=== PATIENT | female | born 1940 | race Caucasian/White ===

== ENCOUNTER 2017-09-18 19:49 | Inpatient (IN) | payer OTHER ==
[~2017-09-18] VITALS: Ht 167.6 cm; Wt 96.4 kg
[~2017-09-18 19:49] MED LIST: ATORVASTATIN CA10 M1 PO; BACTRIM DS TAB1 EACH PO; FUROSEMIDE20 M1 PO; HYDROCHLOROTHIA25 M1 PO; KEFLEX500 M1 PO; MECLIZINE HCL25 MG PO; RW
[2017-09-18 20:26] LABS: ABSOLUTE BASOPHIL COUNT 0 /CUMM (0.0-0.2); ABSOLUTE EOSINOPHIL COUNT 0.2 /CUMM (0.0-0.7); ABSOLUTE LYMPH COUNT 0.3 /CUMM (1.2-3.4); ABSOLUTE MONOCYTE COUNT 0.4 /CUMM (0.10-0.60); BASOPHIL % 0.1 % (0.0-2.0); EOSINOPHIL % 3.8 % (0-5); GRANULOCYTE % 85.4 % (42.2-75.2); HEMATOCRIT 34.8 % (37-47); MEAN CORPUSCULAR HGB 28.5 PG (27.0-31.0); MEAN CORPUSCULAR HGB CONC 33.4 G/DL (33.0-37.0); MEAN CORPUSCULAR VOLUME 85.5 FL (81.0-99.0); MEAN PLATELET VOLUME 9.1 FL (7.4-10.4); PLATELET COUNT 192 /CUMM (130-400); RBC DISTRIBUTION WIDTH 14.5 % (11.5-14.5); RED BLOOD CELL CT 4.07 /CUMM (4.20-5.40); WHITE BLOOD CELL COUNT 5.8 /CUMM (4.8-10.8)
--- NOTE | 2017-09-18 22:20 | ED SKIN/ALLERGY COMPLAINT ---
History of Present Illness General Chief Complaint: Fever Stated Complaint: FEVER/CHILLS Source: patient, family, old records Exam Limitations: no limitations Vital Signs & Intake/Output Vital Signs & Intake/Output Vital Signs Date Time Temp Pulse Resp B/P B/P Pulse O2 O2 Flow FiO2 Mean Ox Delivery Rate 09/19 000 98.5 85 20 120/57 98 Room Air 09/18 2002 100.5 09/18 1956 100.5 09/19 1955 120 16 145/98 96 Room Air ED Intake and Output 09/19 0000 09/18 1200 Intake Total Output Total Balance Patient 200 lb Weight Weight Reported by Patient Measurement Method Allergies Coded Allergies: codeine (Intermediate, GI UPSET 09/08/17) Reconcile Medications Cephalexin (Keflex) 500 MG CAPSULE 1 CAP PO 4 TIMES/DAY INFECTION Hydrochlorothiazide 25 MG TABLET 1 TAB PO DAILY HTN (Reported) Meclizine HCl 25 MG TABLET 1 TAB PO TIDPRN DIZZY (Reported) Sulfamethoxazole/Trimethoprim (Bactrim Ds Tablet) 800 MG-160 MG TABLET 1 TAB PO BID INFECION Triage Note: PT RECENTLY HERE FOR RIGHT LOWER EXTREMITY CELLULITIS, SENT HOME ON PO ABTS. REPORTS FEVERS TODAY UP TO 101. REPORTS MISSED A COUPLE DOSES OF PO ABTS DUE TO STOMACH UPSET. REDNESS, SWELLING PERSISTS TO RIGHT LOWER LEG Triage Nurses Notes Reviewed? yes Onset: Last week Duration: day(s):, constant, continues in ED Timing: recent history Severity: moderate Location: extremities Associated Symptoms: change in skin texture, rash, swelling/mass/lumps LMP (ages 10-50): post menopausal : No Patient currently breastfeeds: No HPI: 10 days prior to admission patient was evaluated for fall and found to have cellulitis of the right lower extremity prescribed Keflex and Bactrim. She is been inconsistent with antibiotics secondary to GI upset. 1 day prior to admission she reports fever to 101 with continued right lower extremity rash. She denies nausea vomiting diarrhea abdominal pain chest pain cough shortness of breath headache dysuria bleeding. Past History Travel History Traveled to [place] past 21 day No Medical History Any Pertinent Medical History? see below for history Neurological: vertigo Cardiovascular: hypertension Surgical History Surgical History: non-contributory Psychosocial History What is your primary language Faroese Tobacco Use: Never used Family History Hx Contributory? No Review of Systems Review of Systems Constitutional: Reports: see HPI, chills, fever. EENTM: Reports: no symptoms. Respiratory: Reports: no symptoms. Cardiovascular: Reports: no symptoms. GI: Reports: no symptoms. Genitourinary: Reports: no symptoms. Musculoskeletal: Reports: no symptoms. Skin: Reports: see HPI, rash. Neurological/Psychological: Reports: no symptoms. Hematologic/Endocrine: Reports: no symptoms. Immunologic/Allergic: Reports: no symptoms. All Other Systems: Reviewed and Negative Physical Exam Physical Exam General Appearance: well developed/nourished, alert, awake, anxious, comfortable , obese Head: atraumatic, normal appearance Eyes: Bilateral: normal appearance, PERRL, EOMI. Ears, Nose, Throat: normal pharynx, normal ENT inspection, hearing grossly normal Neck: normal inspection, supple, full range of motion Respiratory: normal breath sounds, chest non-tender, no respiratory distress, quiet respiration, lungs clear Cardiovascular: regular rate/rhythm, normal peripheral pulses, norml femoral pulses equa Peripheral Pulses: 4+ carotid (R), 4+ carotid (L) Gastrointestinal: normal bowel sounds, soft, non-tender, no organomegaly Back: normal inspection, normal range of motion, no vertebral tenderness Extremities: normal inspection, normal capillary refill, normal range of motion, no edema Neurologic/Psych: no motor/sensory deficits, awake, alert, oriented x 3, normal gait, normal mood/affect, make up girl II-XII nml as tested Reflexes: 2+: bicep (R), bicep (L). Skin: intact, warm/dry, rash Skin Problem Location: lower extremities (right pretibial area), bilateral stasis dermatitis Skin Problem Character: erythema, rash, tenderness, thickening, warm Lymphatic: no anterior cervical elida Progress Differential Diagnosis: abscess/cellulitis, allergic reaction, failure of outpatient antibiotics Plan of Care: Orders Procedure Date/time Status Regular Diet 09/19 B Active Pathway - chart 09/19 57 Active House Staff 09/19 57 Active Patient Data 09/19 57 Active Code Status 09/19 57 Active Add-on Test (ER Only) 09/20 51 Active VTE Mechanical Prophylaxis 09/19 UNK Active Patient Data 09/18 2342 Active OXYGEN SETUP (GEN) 09/18 2306 Active Saline Lock 09/18 2306 Active Admit to inpatient 09/18 2306 Active Vital Signs 09/18 2306 Active Activity/Ambulation 09/18 2306 Active Code Status 09/18 2306 Complete Intake & Output 09/18 2156 Active URINALYSIS 09/19 2135 Complete BLOOD CULTURE 09/18 1958 Active LACTIC ACID 09/18 1958 Complete COMPREHENSIVE METABOLIC PANEL 09/18 1958 Complete CBC WITHOUT DIFFERENTIAL 09/18 1958 Complete Current Medications Sig/Vin Start time Last Medication Dose Stop Time Status Admin Acetaminophen 325 MG Q6 PRN 09/19 99 UNVr (Tylenol) Polyethylene Glycol 17 GM ONCE ONE 09/19 99 CAN (Miralax) 09/19 100 Heparin Sodium 5,000 UNIT Q8 09/19 57 UNVr (Porcine) Docusate Sodium 100 MG DAILY NEEDED PRN 09/19 44 AC (Colace) Polyethylene Glycol 17 GM DAILY 09/19 44 AC (Miralax) Laboratory Tests 09/18/172258: Lactic Acid Cancelled 09/18/172124: Urine Color YEL, Urine Clarity CLEAR, Urine pH 6.0, Ur Specific [place] 1.025, Urine Protein NEG, Urine Ketones TRACE H, Urine Nitrite NEG, Urine Bilirubin NEG, Urine Urobilinogen 0.2, Ur Leukocyte Esterase NEG, Ur Microscopic EXAM NOT REQUIRED, Urine Hemoglobin NEG, Urine Glucose NEG 09/18/172008: Anion Gap 11, Estimated GFR 44 L, BUN/Creatinine Ratio 23.3, Glucose 123 H, Lactic Acid 1.0, Calcium 10.1, Total Bilirubin 0.5, AST 25, ALT 17, Alkaline Phosphatase 104, Total Protein 7.5, Albumin 4.1, Globulin 3.4, Albumin/Globulin Ratio 1.2, CBC w Diff MAN DIFF ORDERED, RBC 4.07 L, MCV 85.5, MCH 28.5, MCHC 33.4, RDW 14.5, MPV 9.1, Gran % 85.4 H, Lymphocytes % 4.7 L, Monocytes % 6.0, Eosinophils % 3.8, Basophils % 0.1, Absolute Granulocytes 5.0, Segmented Neutrophils 69, Band Neutrophils 11 H, Absolute Lymphocytes 0.3 L, Lymphocytes 9 L, Monocytes 6, Absolute Monocytes 0.4, Eosinophils 5, Absolute Eosinophils 0.2, Absolute Basophils 0, Platelet Estimate ADEQUATE, Normocytic RBCs VERIFIED Microbiology 09/18 2144 BLOOD: Blood Culture - RECD 09/18 2008 BLOOD: Blood Culture - RECD Diagnostic Imaging: Viewed by Me: Radiology Read. Discussed w/RAD: Radiology Read. CXR Impression: no acute abnormality, no infiltrates Departure Departure Time of Disposition: 2300 Disposition: STILL A PATIENT Condition: Stable Clinical Impression Primary Impression: Cellulitis Referrals: Aster IVAN,Milton Borjas (PCP/Family) Departure Forms: Customer Survey General Discharge Information Admission Note Spoke With: Kamla Ramos MD Documentation of Exam: Documentation of any treatments & extenuating circumstances including Concerns Regarding Discharge (functional status, medication knowledge or non-compliance, living conditions, etc.) that warrant an admission rather than observation: IV antibiotics follow cultures medication adjustment serial lab exam continuing care discharge planning
--- NOTE | 2017-09-18 22:27 | RADIOLOGY REPORT ---
EXAMINATION: XR CHEST CLINICAL INFORMATION: Femur COMPARISON: None TECHNIQUE: 2 views of the chest were obtained. FINDINGS: The lungs are well expanded. There is no focal consolidation, edema, or effusion. No pneumothorax. The cardiomediastinal silhouette is normal in size with a tortuous aorta. No acute osseous abnormality. IMPRESSION: No acute pulmonary findings.
--- NOTE | 2017-09-18 23:52 | History & Physical ---
Teri Paez Vincent 09/18/17 5203: General Information and HPI MD Statement: I have seen and personally examined SVETLANA FRANCO and documented this H&P. The patient is a 77 year old F who presented with a patient stated chief complaint of [Fever]. Source of Information: patient, old records Exam Limitations: no limitations History of Present Illness: Ms. 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 Patient was last discharged with PO ABX of keflex and bactrim with negative blood cultures, however she was being consistent with antibiotics secondary to GI upset. One day prior to admission patient reported fever of 101, with continued right lower extremity redness/swelling. Patient also stated that she has a cat at home that she got scratched on the leg before and after 09/08 ER visit. She cannot really remember the details of the scratches, or whether there has been skin breakdown. However patient also stated that she had a remote history of being scratched by the same cat, and was sent for urgent care for treatment of cellulitis some years ago. She denies any significant hospitalization in the past, and was only taking hydrochlorothiazide for hypertension, and the meclizine as needed for vertigo. She was supposed to take Lipitor for the hyperlipidemia, but she did not take it on a regular basis. She was also been prescribed before was furosemide for hypertension, but she was not taking it now as well. During our clinical interaction, patient denied fever/night sweat/weight change/ cough/SOB/Chest Pain/Palpitation/exercise intolerance/Abdominal pain/bowel movement/urinary abnormality, or other skin/musculoskeletal/neurological disorders/mood change/insomnia/dietary/appetite change. -Smoking: Denies -Alcohol: Denies -Rec Drugs: Denies Allergies/Medications Allergies: Coded Allergies: codeine (Intermediate, GI UPSET 09/08/17) Home Med list Cephalexin (Keflex) 500 MG CAPSULE 1 CAP PO 4 TIMES/DAY INFECTION Hydrochlorothiazide 25 MG TABLET 1 TAB PO DAILY HTN (Reported) Meclizine HCl 25 MG TABLET 1 TAB PO TIDPRN DIZZY (Reported) Sulfamethoxazole/Trimethoprim (Bactrim Ds Tablet) 800 MG-160 MG TABLET 1 TAB PO BID INFECION Past History Travel History Traveled to [place] past 21 day No Medical History Neurological: vertigo Cardiovascular: hypertension Surgical History Surgical History: non-contributory Review of Systems Review of Systems Constitutional: Reports: see HPI. Exam & Diagnostic Data Last 24 Hrs of Vital Signs/I&O Vital Signs Date Time Temp Pulse Resp B/P B/P Pulse O2 O2 Flow FiO2 Mean Ox Delivery Rate 09/18 2002 100.5 09/18 1956 100.5 09/19 1955 120 16 145/98 96 Room Air Physical Exam General Appearance Alert, Oriented X3, Cooperative, No Acute Distress Skin No Rashes, No Breakdown, No Significant Lesion Skin Temp/Moisture Exam: Warm/Dry Sepsis Skin Exam (color): Normal for Ethnicity HEENT Atraumatic Neck Supple, No JVD Lymphatic Axillary nl, Cervical nl, inguinal nl Cardiovascular Regular Rate, Normal S1, Normal S2 Lungs Clear to Auscultation, Normal Air Movement Abdomen Normal Bowel Sounds, Soft, No Tenderness Neurological Normal Speech, Strength at 5/5 X4 Ext, Sensation Intact Extremities Normal Pulses, Chronic venous stasis skin changes BLE RLE below knee with redness/swelling, but no significant elevation of skin temp Last 24 Hrs of Labs/Te: Laboratory Tests 09/18/172258: Lactic Acid Cancelled 09/18/172124: Urine Color YEL, Urine Clarity CLEAR, Urine pH 6.0, Ur Specific [place] 1.025, Urine Protein NEG, Urine Ketones TRACE H, Urine Nitrite NEG, Urine Bilirubin NEG, Urine Urobilinogen 0.2, Ur Leukocyte Esterase NEG, Ur Microscopic EXAM NOT REQUIRED, Urine Hemoglobin NEG, Urine Glucose NEG 09/18/172008: Anion Gap 11, Estimated GFR 44 L, BUN/Creatinine Ratio 23.3, Glucose 123 H, Lactic Acid 1.0, Calcium 10.1, Total Bilirubin 0.5, AST 25, ALT 17, Alkaline Phosphatase 104, Total Protein 7.5, Albumin 4.1, Globulin 3.4, Albumin/Globulin Ratio 1.2, CBC w Diff MAN DIFF ORDERED, RBC 4.07 L, MCV 85.5, MCH 28.5, MCHC 33.4, RDW 14.5, MPV 9.1, Gran % 85.4 H, Lymphocytes % 4.7 L, Monocytes % 6.0, Eosinophils % 3.8, Basophils % 0.1, Absolute Granulocytes 5.0, Segmented Neutrophils 69, Band Neutrophils 11 H, Absolute Lymphocytes 0.3 L, Lymphocytes 9 L, Monocytes 6, Absolute Monocytes 0.4, Eosinophils 5, Absolute Eosinophils 0.2, Absolute Basophils 0, Platelet Estimate ADEQUATE, Normocytic RBCs VERIFIED Microbiology 09/18 2144 BLOOD: Blood Culture - RECD 09/18 2008 BLOOD: Blood Culture - RECD Assessment/Plan Assessment: Problem list & Assessment: Patient presented with similar complaint from previous admission of cellulitis of the right lower extremity, with new onset fever after inconsistent use of oral antibiotics including Keflex/Bactrim DS. Her previous blood culture was negative. On physical examination, her bilateral lower extremities appear to be more of a chronic skin changes from venous stasis, was auscultable pulses with Doppler, and the patient endorsed some achiness while walking. There was no significant elevation of skin temperature of the cellulitis site compared to the left lower extremity. Cat-Scratch related fever could not be rule out, despite patient's been negative on physical examination of lymph nodes, or had a pustular lesion/significant scratch florence. Elevated creatinine most likely due to dehydration/fever. #Cellulitis of the right lower extremity #Questionable cat-scratch disease w/ no lymphadenopathy/pustular lesion/scratch florence #Chronic venous stasis with skin change BLE #ALECIA 2/2 dehydration #PMH of hypertension, hyperlipidemia, vertigo Hospital Course: - Admit to general medicine floor course, if worsening, may consider ID consult DVT prophylaxis Heparin + ALPS Regular Diet Full Code As Ranked By This Provider Problem List: 1. Cellulitis Core Measures/Misc (02/02) Acute Coronary Syndrome ACS Diagnosis: No Congestive Heart Failure Congestive Heart Failure Diagnosis No Cerebrovascular Accident CVA/TIA Diagnosis: No VTE (View Protocol) VTE Risk Factors Age>40 No Mechanical VTE Prophylaxis d/t N/A MechProphylax Ordered No VTE Pharm Prophylaxis d/t NA PharmProphylax ordered Sepsis (View protocol) Sepsis Present: No Gianni Ortiz 09/19/17 0159: Resident Review Statement Resident Statement: examined this patient, discussed with integrated marketing intern Other Findings: Patient is a 79-year-old female with past medical history of hypertension, vertigo, recent visit to [facility] for RLE cellulitis(treated with IV cefazolin, by mouth Bactrim) presents for the evaluation of worsening redness and edema in the right leg. Patient was seen in the [place] ER on 09/08/2017 one week status post a mechanical fall with trauma to her right lower extremity. She was found to have right lower extremity cellulitis and was treated with IV cefazolin in the ED. A right lower extremity ultrasound done at that time was negative for DVT. She was discharged on by mouth Bactrim. Patient reports that she has been taking Bactrim intermittently for the last 2 weeks missing a few doses due to extreme nausea. She feels the edema and redness in her extremity had worsened since her last ER visit. She denies any chest pain, palpitation, shortness of breath, abdominal pain, urinary or bowel symptoms. She reports feeling hot at home and mounting a fever of 99.8. Denies any further trauma to her leg but admits to having multiple cat scratches to her extremity. Denies any open wounds, purulent discharge from the leg. She did have a skin break on the anterior part of her right ankle a few days back which healed by itself. She does have stasis dermatitis changes on her legs and reports claudication when walking long distances. Patient appears to be non complaint with her home medications Of note, patient has been treated in urgent care previously for cellulitis secondary to cat stratch. Her cat is a feral cat not really domestic, but raised by her friends and relatives. She does not recall any bite wounds nor significant skin breaks secondary to cat scratch. At admission she had a temp of 100.5, pulse 120, respirations 16, blood pressure 145/98, saturating 96% on room air. Labs showed white count 5.8 with 11 bands., H&H 11.6/34.8, sodium 135, BUN 28, creatinine 1.2(0.7 baseline), glucose 123, C-reactive protein 2, UA unimpressive Chest x-ray showed no acute findings Physical exam: General: Awake, alert, oriented, in no distress HEENT: PERRLA, EOMI, no palpable lymphadenopathy Chest: Bilateral breath sounds clear CVS: S1 and S2 heard no murmurs Abdomen: Bowel sounds positive, no tenderness Extremities: RLE: Swollen, erythematous,hot, with chronic venous stasis changes. No scratch florence noted. L LE: Chronic venous stasis changes. Pulses palpable bilaterally(Doppler used) Assessment Sepsis secondary to cellulitis Right lower extremity cellulitis(failure of IV cefazolin and PO Bactrim) Cat Scratch disease?? No lymphadenopathy or cutaneous lesions Chronic venous stasis changes bilateral lower extremities ALECIA, prerenal likely secondary to dehydration and Bactrim Chronic venous statis changes Peripheral vascular disease? Reports claudication Hypertension/hyperlipidemia Medication non compliance Plan * Admit patient to [facility] * Vitals per protocol * Gentle hydration with IV normal saline at 75 cc an hour * Patient received 1 dose of IV vancomycin in the day(however non purulent). We will continue IV Unasyn for cellulitis.(Failure of IV cefazolin/po Bactrim) * We'll give 1 dose of IV azithromycin for cat scratch disease. It seems unlikely given no palpable lymphadenopathy or cutaneous lesions * Pancultures * Elevate RLE * Cellulitis not getting better, consider ID consult * Recheck Doppler of right lower extremity. Doppler 09/09 was negative * Avoid nephrotoxins, will hydrate and check B E P in a.m. * We will hold hydrochlorothiazide given kidney injury. Can try amlodipine a blood pressure high. 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 Patient sustained a mechanical fall 3 weeks ago wherein she slipped on water on the tiled bathroom floor and suffered bruises. A week later on September 08, she came to the ER for right leg swelling/ redness. She was diagnosed with cellulitis and given IV cefazolin. DVT was ruled out with a doppler. Due to her unsteady gait, PT evaluation was sought and acute rehabilitation was suggested. However, patient refused and left against medical advice. She was prescribed keflex and bactrim for cellulitis, which she reports being non-compliant with in the past few days due to nausea and vomiting. She had a fever of 101 at home, and the right leg erythema persisted, hence she came to the ER. She also reports cat scratch to the right leg but no evidence of cutaneous lesions. At admission she had a temp of 100.5, pulse 120, respirations 16, blood pressure 145/98, saturating 96% on room air. Vitals Tmax 100.5, HR 80-100's, BP 120/57, sats 98% RA. Exam: Bilateral leg/ ankle chronic venous stasis dermatitis+, Right leg ecchymotic patch noted just below the right knee, diffuse blanching erythema and swelling noted, warmth+, no open wounds or scratch florence. Bilateral dopplerable pulse++. Varicose veins+, skin changes suggestive of peripheral vascular disease+. No lymphadenopathy Labs: WBC 5.8, bands 11, Na 135, BUN 28, creat 1.2 (baseline 0.7), glucose 123, lactic acid 1.0, CRP elevated at 2.0. UA negative. CXR no acute findings. Assessment and plan: 1. Sepsis (fever, bandemia) due to right leg cellulitis 2. Cannot rule out cat-scratch disease as no e/o cutaneous lesions or lymphedenopathy 3. Failed outpatient therapy 4. Noncompliance with medication regimen 5. Chronic venous stasis 6. ALECIA likely 2/2 poor PO intake and bactrim use 7. Essential hypertension - Admit to general medicine - Elevate right leg - Panculture - Patient received Vancomycin in the ER no e/o pustular lesions or purulence - Continue IV Unasyn, one dose of azithro given for possible cat scratch - Pulses were dopplerable so holding off on arterial doppler - Recent venous doppler was negative for DVT - Hold HCTZ and benicar due to ALECIA, gentle hydration - PT eval for unsteady gait, case management consult for STR as patient refused during last ER visit - Patient is not on any meds for HLD, check lipid panel, TSH, free T4, HbA1c - Supportive care for nausea, vomiting - patient was tolerating her diet during our evaluation DVT ppx Hep SC. Full code.
[2017-09-19 01:29] VITALS: BP 122/64
--- NOTE | 2017-09-19 02:51 | Admission Certification ---
Admission Certification Certification Statement - As attending physician, I certify that at the time of - admission, based on clinical presentation, severity of - symptoms, need for further diagnostic testing and - therapeutic interventions, and risk of adverse outcomes - without in-hospital treatment, in my clinical assessment, - this patient requires an acute hospital stay for a minimum - of two nights or longer. I have also considered psychsocial - factors such as support system, advanced age, financial - issues, cognitive issues, and failed out-patient treatments, - past re-admission history, safety of patient, and lack of - compliance as applicable. Specific rationale supporting this admission is: Sepsis, Right lower extremity cellulitis, failed outpatient antibiotic therapy
[2017-09-19 06:54] VITALS: BP 124/72
--- NOTE | 2017-09-19 07:19 | PN- Housestaff ---
Michael Bush MD,[facility] 09/19/17 0719: Subjective Follow-up For: Cellulitis AK I Subjective: Patient visited today, was eating at the bedside bed comfortably in no acute distress, was alert and oriented. MAXIMUM TEMPERATURE 100.5 last night, no shortness of breathing, no chest pain, no other events. Patient receiving IV Unasyn Review of Systems Constitutional: Reports: see HPI. Objective Last 24 Hrs of Vital Signs/I&O Vital Signs Date Time Temp Pulse Resp B/P B/P Pulse O2 O2 Flow FiO2 Mean Ox Delivery Rate 09/19 1507 98.1 85 20 110/58 96 Room Air 09/19 0929 98.2 09/19 0654 97.7 78 20 124/72 96 09/19 0129 97.6 87 20 122/64 96 / 0009 98.5 85 20 120/57 98 Room Air 09/18 2003 100.5 09/18 1957 100.5 09/18 1956 120 16 145/98 96 Room Air Intake & Output 09/19 1600 09/19 0800 09/19 0000 Intake Total 1225 620 Output Total 500 350 Balance 725 270 Intake, IV 625 500 Intake, Oral 600 120 Number 1 Bowel Movements Output, Urine 500 350 Patient 213 lb 200 lb Weight Weight Bed scale Reported by Patient Measurement Method Physical Exam General Appearance: Alert, Oriented X3, Cooperative, No Acute Distress Skin: No Rashes Skin Temp/Moisture Exam: Warm/Dry Sepsis Skin Exam (color): Normal for Ethnicity HEENT: Atraumatic, EOMI Cardiovascular: Normal S1, Normal S2 Lungs: Normal Air Movement Extremities: Right leg swelling, erythema, tenderness Borders of erythema marked Current Medications: Current Medications Sig/Vin Start time Last Medication Dose Route Stop Time Status Admin Acetaminophen 650 MG ONCE ONE 09/19 1100 DC 09/19 PO 09/19 1101 1116 Acetaminophen 325 MG Q6 PRN 09/19 0100 AC 09/19 PO 0932 Ampicillin Sodium/ 1,500 MG Q6 09/19 0600 09/19 Sulbactam Sodium IV 1158 Sodium Chloride 100 ML Azithromycin 500 MG ONCE ONE 09/19 0300 DC 09/19 Sodium Chloride 250 ML IV 09/19 0359 0244 Docusate Sodium 100 MG DAILY NEEDED PRN 09/19 0045 09/19 PO 0126 Heparin Sodium 5,000 UNIT Q8 09/19 0058 AC 09/19 (Porcine) SC 1351 Ibuprofen 400 MG ONCE ONE 09/18 2014 DC 09/18 PO 09/18 Losartan Potassium 50 MG DAILY 09/19 1512 AC PO Polyethylene Glycol 17 GM ONCE ONE 09/19 0100 CAN PO 09/19 0101 Polyethylene Glycol 17 GM DAILY 09/19 0045 AC 09/19 PO 0932 Sodium Chloride 1,000 ML Q13H 09/19 0200 DC 09/19 IV 09/19 1459 0220 Vancomycin HCl 0 .STK-MED ONE 09/18 2352 DC .ROUTE Vancomycin HCl 1,000 MG ONCE ONE 09/18 2315 DC 09/18 Sodium Chloride 250 ML IV 09/19 0014 2350 Last 24 Hrs of Lab/Te Results Last 24 Hrs of Labs/Mics: Laboratory Tests 09/19/17 0630: Anion Gap 10, Estimated GFR 54 L, BUN/Creatinine Ratio 28.0 H, Hemoglobin A1c 5.6, TSH 5.490 H, Free T4 1.07, CBC w Diff NO MAN DIFF REQ, RBC 3.76 L, MCV 85.6, MCH 28.5, MCHC 33.4, RDW 14.6 H, MPV 9.4, Gran % 72.7, Lymphocytes % 11.2 L, Monocytes % 8.8, Eosinophils % 7.2 H, Basophils % 0.1, Absolute Granulocytes 2.3, Absolute Lymphocytes 0.4 L, Absolute Monocytes 0.3, Absolute Eosinophils 0.2, Absolute Basophils 0, ESR Westergren 35 H 09/18/17 2259: Lactic Acid Cancelled 09/18/175: Urine Color YEL, Urine Clarity CLEAR, Urine pH 6.0, Ur Specific Catlin 1.025, Urine Protein NEG, Urine Ketones TRACE H, Urine Nitrite NEG, Urine Bilirubin NEG, Urine Urobilinogen 0.2, Ur Leukocyte Esterase NEG, Ur Microscopic EXAM NOT REQUIRED, Urine Hemoglobin NEG, Urine Glucose NEG 09/18/172008: Anion Gap 11, Estimated GFR 44 L, BUN/Creatinine Ratio 23.3, Glucose 123 H, Lactic Acid 1.0, Calcium 10.1, Total Bilirubin 0.5, AST 25, ALT 17, Alkaline Phosphatase 104, C-Reactive Prot, Quant 2.0 H, Total Protein 7.5, Albumin 4.1, Globulin 3.4, Albumin/Globulin Ratio 1.2, CBC w Diff MAN DIFF ORDERED, RBC 4.07 L, MCV 85.5, MCH 28.5, MCHC 33.4, RDW 14.5, MPV 9.1, Gran % 85.4 H, Lymphocytes % 4.7 L, Monocytes % 6.0, Eosinophils % 3.8, Basophils % 0.1, Absolute Granulocytes 5.0, Segmented Neutrophils 69, Band Neutrophils 11 H, Absolute Lymphocytes 0.3 L, Lymphocytes 9 L, Monocytes 6, Absolute Monocytes 0.4, Eosinophils 5, Absolute Eosinophils 0.2, Absolute Basophils 0, Platelet Estimate ADEQUATE, Normocytic RBCs VERIFIED Microbiology 09/18 2144 BLOOD: Blood Culture - RES 09/18 2008 BLOOD: Blood Culture - RES Assessment/Plan Assessment: 77 y F presented with persistant swelling and erythema of right leg Took keflex, bactrim for 7 days and stopped PMH: HTN, Vertigo, recent cellulitis at the time of intervention, on physical examination, her bilateral lower extremities appeared to be more of a chronic skin changes from venous stasis, was auscultable pulses with Doppler, and the patient endorsed some achiness while walking. There was no significant elevation of skin temperature of the cellulitis site compared to the left lower extremity. 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 Cellulitis Pain Ratin Pain Location: Left leg Pain Goal: Pain 4 or less Pain Plan: Continue current plan responds well to tynelol Tomorrow's Labs & Rationales: No lab Ethan Valle MD 09/19/17 1322: Attending MD Review Statement Attending Statement Attending MD Statement: examined this patient, discuss w/resident/PA/CUT OFF MACHINE OPERATOR, agreed w/resident/PA/CUT OFF MACHINE OPERATOR, discussed with family, reviewed EMR data (avail), discussed with nursing, discussed with case mgmt, amended to note Attending Assessment/Plan: Patient seen and examined lying in bed not in any acute distress. Daughter present at the bedside. She is afebrile. She is hemodynamically stable. She denies any pain in the right lower extremity. On examination she has diffuse erythema extending from the foot all the way up to below the knee on the right leg. There is no open area. There is no tenderness. There is no fluctuant area. Pulses palpable. Venous Doppler done today shows no DVT. Recommendations Continue antibiotic therapy with IV Unasyn. If patient improves over the next 48 hours she may be transitioned to oral antibiotic therapy to complete 10 days of treatment. Patient encouraged to mobilize as tolerated.
[2017-09-19 08:18] LABS: ABSOLUTE BASOPHIL COUNT 0 /CUMM (0.0-0.2); ABSOLUTE EOSINOPHIL COUNT 0.2 /CUMM (0.0-0.7); ABSOLUTE GRANULOCYTE CT 2.3 /CUMM (1.4-6.5); ABSOLUTE LYMPH COUNT 0.4 /CUMM (1.2-3.4); ABSOLUTE MONOCYTE COUNT 0.3 /CUMM (0.10-0.60); BASOPHIL % 0.1 % (0.0-2.0); EOSINOPHIL % 7.2 % (0-5); GRANULOCYTE % 72.7 % (42.2-75.2); HEMATOCRIT 32.2 % (37-47); MEAN CORPUSCULAR HGB 28.5 PG (27.0-31.0); MEAN CORPUSCULAR HGB CONC 33.4 G/DL (33.0-37.0); MEAN CORPUSCULAR VOLUME 85.6 FL (81.0-99.0); MEAN PLATELET VOLUME 9.4 FL (7.4-10.4); PLATELET COUNT 148 /CUMM (130-400); RBC DISTRIBUTION WIDTH 14.6 % (11.5-14.5); RED BLOOD CELL CT 3.76 /CUMM (4.20-5.40); WHITE BLOOD CELL COUNT 3.2 /CUMM (4.8-10.8)
--- NOTE | 2017-09-19 10:34 | ULTRASOUND REPORT ---
EXAMINATION: RIGHT LOWER EXTREMITY VENOUS DOPPLER ULTRASOUND CLINICAL INFORMATION: Right lower extremity edema. Rule out DVT. Edema and swelling and discoloration of the right leg. COMPARISON: Right lower extremity venous Doppler ultrasound dated 09/08/2017. TECHNIQUE: Doppler spectral analysis and color flow Doppler imaging was performed of the right lower extremity. Compression and augmentation maneuvers were performed. FINDINGS: The right common femoral vein, greater saphenous vein takeoff, femoral vein, and popliteal vein are normally compressible with normal augmentation responses and phasic changes seen with Doppler imaging. The midcalf peroneal and posterior tibial veins are patent as well. No popliteal cyst is seen. IMPRESSION: No evidence of deep venous thrombosis in the right lower extremity.
[2017-09-19] MEDS ORDERED: AUGMENTIN 875-1 EACH PO ×2 (15:01→15:16)
--- NOTE | 2017-09-19 15:03 | Patient Discharge Instructions ---
Discharge Instructions General Discharge Information You were seen/treated for: Cellulitis Watch for these problems: Severe pain, fever, shortness of breathing, increased swelling of legs, chest pain, worsening of symptoms Special Instructions: Please follow with your PCP within one week of discharge. Please take your medications as instructed, please come back to hospital if symptoms worsen. Diet Continue normal diet: No Recommended Diet: Heart Healthy Activity Full Activity/No Limits: No Activity Self Limited: Yes Acute Coronary Syndrome Inclusion Criteria At DC or during hospital stay patient has or had the following: ACS DIAGNOSIS No Discharge Core Measures Meds if any: Prescribed or Continued at Discharge Meds if any: NOT Prescribed or Continued at Discharge Congestive Heart Failure Inclusion Criteria At DC or during hospital stay patient has or had the following: CHF DIAGNOSIS No Discharge Core Measures Meds if any: Prescribed or Continued at Discharge Meds if any: NOT Prescribed or Continued at Discharge Cerebrovascular accident Inclusion Criteria At DC or during hospital stay patient has or had the following: CVA/TIA Diagnosis No Discharge Core Measures Meds if any: Prescribed or Continued at Discharge Meds if any: NOT Prescribed or Continued at Discharge Venous thromboembolism Inclusion Criteria VTE Diagnosis No VTE Type NONE VTE Confirmed by (Test) NONE Discharge Core Measures - Per Current guidelines, there needs to be overlap - treatment for the first 5 days of Warfarin therapy. - If discharged on Warfarin prior to 5 days of - overlap therapy, the patient will need to be - assessed for post discharge needs including - *Post discharge parental anticoagulation - *Warfarin and/or parental anticoagulation education - *Follow up date to check INR post discharge At least 5 days overlap therapy as Inpatient No Meds if any: Prescribed or Continued at Discharge Note: Overlap Therapy is Warfarin and Anticoagulant Meds if any: NOT Prescribed or Continued at Discharge
[2017-09-19 15:07] VITALS: BP 110/58
[2017-09-19] MEDS ORDERED: BENICAR20 M1 PO (15:10)
[2017-09-19 21:31] VITALS: BP 130/76
[2017-09-20 05:45] VITALS: BP 112/60
--- NOTE | 2017-09-20 06:42 | PN- Housestaff ---
[facility] Subjective Follow-up For: Right leg cellulitis ALECIA (resolved) Subjective: No overnight events. Patient remained afebrile but patient seen and examined this morning. She denied any chest pain, short of breath, nausea, vomiting, fever, abdominal pain dysuria. Her right leg redness has improved. Review of Systems Constitutional: Denies: chills, fever. EENTM: Reports: no symptoms. Cardiovascular: Denies: chest pain, palpitations. Respiratory: Denies: cough, short of breath, sputum production. Gastrointestinal: Denies: abdominal pain, constipation, diarrhea, melena, nausea. Genitourinary: Reports: no symptoms. Musculoskeletal: Reports: see HPI. Neurological/Psychological: Reports: no symptoms. Objective Last 24 Hrs of Vital Signs/I&O Vital Signs Date Time Temp Pulse Resp B/P B/P Pulse O2 O2 Flow FiO2 Mean Ox Delivery Rate 09/20 0545 99.6 86 20 112/60 96 Room Air 09/19 2131 98.7 94 20 130/76 97 / 1733 85 110/58 05/ 1507 98.1 85 20 110/58 96 Room Air / 0929 98.2 Intake & Output 09/20 0800 05/ 0000 09/19 1600 Intake Total 922 069 1744 Output Total 600 500 Balance -350 705 725 Intake, IV 250 225 625 Intake, Oral 480 600 Number 1 Bowel Movements Output, Urine 600 500 Physical Exam General Appearance: Alert, Oriented X3, Cooperative Skin Temp/Moisture Exam: Warm/Dry Sepsis Skin Exam (color): Normal for Ethnicity HEENT: Atraumatic, PERRLA, EOMI Neck: Supple Cardiovascular: Normal S1, Normal S2 Lungs: Clear to Auscultation Abdomen: Soft, No Tenderness Neurological: Normal Speech, Strength at 5/5 X4 Ext, Normal Tone Extremities: B/L PEDAL EDEMA AND CHRONIC VENOUS CHANGES, RIGHT LEG REDNESS HAS IMPROVED Assessment/Plan Assessment: 77yo F w/ PMH of HTN, HLD, HLD, vertigo, with 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 We are following the patient for following problems: Right leg cellulitis: -Leg elevation to decrease swelling -Continue IV Unasyn day 2 -Blood cultures are negative so far -Doppler studies negative for DVT -Pain management according to pain pathway ALECIA (RESOLVED) -Avoid nephrotoxins medications -Monitor input and output -Monitor creatinine BUN History of hypertension and hyperlipidemia: -Continue losartan. We are holding hydrochlorothiazide. -We will start Lipitor DVT prophylaxis: Mechanical and subcutaneous heparin CODE STATUS: Full code Problem List: 1. Cellulitis Pain Ratin Pain Location: none Pain Goal: Remain pain free Pain Plan: pain pathway Tomorrow's Labs & Rationales: none Lauren Valencia MD 09/20/17 1035: Attending MD Review Statement Attending Statement Attending MD Statement: examined this patient, discuss w/resident/PA/TERRAZZO TILE SETTER, agreed w/resident/PA/TERRAZZO TILE SETTER, reviewed EMR data (avail), discussed with nursing, reviewed images Attending Assessment/Plan: The patient does feel like her right lower extremity has gotten better. She is on IV Unasyn. She is here with a cellulitis having failed outpatient oral antibiotics. She had ALECIA on admission and hence they held the hydrochlorothiazide and ARB. Now her ARB has been restarted and if her renal function stays stable we'll also restart her thiazide. Ultrasound is negative for DVT and if she is clinically improved anticipated discharge in a.m. on oral Augmentin.
[2017-09-20 08:26] LABS: ABSOLUTE BASOPHIL COUNT 0 /CUMM (0.0-0.2); ABSOLUTE EOSINOPHIL COUNT 0.3 /CUMM (0.0-0.7); ABSOLUTE GRANULOCYTE CT 2.4 /CUMM (1.4-6.5); ABSOLUTE LYMPH COUNT 0.8 /CUMM (1.2-3.4); ABSOLUTE MONOCYTE COUNT 0.4 /CUMM (0.10-0.60); BASOPHIL % 0.4 % (0.0-2.0); EOSINOPHIL % 6.6 % (0-5); GRANULOCYTE % 60.6 % (42.2-75.2); HEMATOCRIT 32.4 % (37-47); MEAN CORPUSCULAR HGB 28.6 PG (27.0-31.0); MEAN CORPUSCULAR HGB CONC 33.3 G/DL (33.0-37.0); MEAN PLATELET VOLUME 9.7 FL (7.4-10.4); PLATELET COUNT 149 /CUMM (130-400); RBC DISTRIBUTION WIDTH 14.8 % (11.5-14.5); RED BLOOD CELL CT 3.77 /CUMM (4.20-5.40)
[2017-09-20 13:38] VITALS: BP 116/61
[2017-09-20 22:13] VITALS: BP 100/56
--- NOTE | 2017-09-21 07:00 | PN- Housestaff ---
[facility] 09/21/17 0700: Subjective Follow-up For: Right leg cellulitis Subjective: No overnight events. Patient remained afebrile. Seen and examined this morning. She denied any chest pain, palpitation, fever, chills, abdominal pain and dysuria. Patient wants to go home today. She remained afebrile and WBC count within normal limits. Her blood cultures are negative. We will give her oral Augmentin for 7 days to complete 10 days antibiotic course. Patient reported that she has nausea and vomiting with Keflex last time. And she reported having burning sensation in the stomach. Review of Systems Constitutional: Denies: chills, fever. EENTM: Reports: no symptoms. Cardiovascular: Denies: chest pain, orthopena, palpitations. Respiratory: Denies: cough, short of breath, sputum production. Gastrointestinal: Denies: abdominal pain, constipation, diarrhea, melena, nausea. Genitourinary: Reports: no symptoms. Musculoskeletal: Reports: see HPI. Neurological/Psychological: Reports: no symptoms. Objective Last 24 Hrs of Vital Signs/I&O Vital Signs Date Time Temp Pulse Resp B/P B/P Pulse O2 O2 Flow FiO2 Mean Ox Delivery Rate 09/21 0702 97.7 87 20 146/76 97 Room Air 09/20 2213 98.3 74 18 100/56 96 Room Air 09/20 1338 97.9 78 18 116/61 98 Room Air 05/05 0810 115/60 05/05 0800 96 Room Air Intake & Output / 0800 05/06 0000 05/05 1600 Intake Total 500 950 940 Output Total 350 Balance 500 600 940 Intake, IV 260 100 200 Intake, Oral 240 850 740 Output, Urine 350 Physical Exam General Appearance: Alert, Oriented X3, Cooperative Skin: No Rashes Skin Temp/Moisture Exam: Warm/Dry Sepsis Skin Exam (color): Normal for Ethnicity HEENT: Atraumatic, PERRLA, EOMI Neck: Supple Cardiovascular: Normal S1, Normal S2 Lungs: Clear to Auscultation Abdomen: Soft, No Tenderness Neurological: Normal Speech, Strength at 5/5 X4 Ext, Normal Tone Extremities: b/l GRADE 1 PEDAL EDEMA, RIGHT LEG REDNESS HAS IMPROVED. 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 We are following the patient for following problems: Right leg cellulitis: -Leg elevation to decrease swelling. Her leg swelling and redness has been decreased. -Continue IV Unasyn day 3. We will change her antibiotic to oral Augmentin today and possible discharge. -Patient remained afebrile and WBC count within normal limits. -Blood culture remained negative -Doppler studies negative for DVT ALECIA (RESOLVED) -Avoid nephrotoxins medications -Monitor input and output -Monitor creatinine BUN -Losartan has been restarted, initially held because of ALECIA History of hypertension and hyperlipidemia: -Continue losartan. We are holding hydrochlorothiazide. -We will start Lipitor DVT prophylaxis: Mechanical and subcutaneous heparin CODE STATUS: Full code Problem List: 1. Cellulitis Pain Ratin Pain Location: none Pain Goal: Remain pain free Pain Plan: pain pthway Tomorrow's Labs & Rationales: none Annie IVAN,Lauren 09/21/17 1115: Attending MD Review Statement Attending Statement Attending MD Statement: examined this patient, discuss w/resident/PA/RN TRANSPORT, agreed w/resident/PA/RN TRANSPORT, reviewed EMR data (avail), discussed with nursing, reviewed images Attending Assessment/Plan: Patient is feeling better. She also feels her cellulitis has improved. She is worried about the oral Augmentin and she's worried about drugs that give her GI upset because she couldn't take her Keflex as an outpatient and that's what prompted her to come in. I reassured her that we would stop the Augmentin over your give her her first was here make sure she's tolerating it okay and and if okay will discharge her later today. She'll complete a total of 7 days of antibiotics the Unasyn and the Augmentin total 7 days for the cellulitis that failed outpatient therapy. Her ALECIA has resolved, she is on her arb for hypertension and will restart her usual arb and thiazide once she leaves.
[2017-09-21 07:02] VITALS: BP 146/76
[2017-09-21 08:47] LABS: ABSOLUTE BASOPHIL COUNT 0 /CUMM (0.0-0.2); ABSOLUTE EOSINOPHIL COUNT 0.2 /CUMM (0.0-0.7); ABSOLUTE GRANULOCYTE CT 1.4 /CUMM (1.4-6.5); ABSOLUTE LYMPH COUNT 1.1 /CUMM (1.2-3.4); ABSOLUTE MONOCYTE COUNT 0.2 /CUMM (0.10-0.60); BASOPHIL % 0.5 % (0.0-2.0); GRANULOCYTE % 46.5 % (42.2-75.2); HEMATOCRIT 31.7 % (37-47); MEAN CORPUSCULAR HGB 28.7 PG (27.0-31.0); MEAN CORPUSCULAR HGB CONC 33.4 G/DL (33.0-37.0); MEAN PLATELET VOLUME 9.5 FL (7.4-10.4); PLATELET COUNT 145 /CUMM (130-400); RBC DISTRIBUTION WIDTH 15.1 % (11.5-14.5); RED BLOOD CELL CT 3.69 /CUMM (4.20-5.40)
[2017-09-21] MEDS ORDERED: AUGMENTIN 875-1 EACH PO ×3 (10:32→10:59)
--- NOTE | 2017-09-21 14:06 | Discharge Summary ---
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 ED course: Vitals: Temperature 100.5, pulse 120, respiratory rate 16, blood pressure 145/98 , oxygen saturation 96% room air Labs: WBC count 5.8, hemoglobin 11.6, hematocrit 34.8, platelet count 192, sodium 135, potassium 4.7, BUN 28, creatinine 1.2, glucose 123, lactic acid 1.0, AST 25, ALT 17, alkaline phosphatase 104, calcium 10.1 Right leg cellulitis: Patient was admitted with right leg cellulitis. Initially patient was treated with IV Unasyn. Patient was instructed to keep her leg elevated to decrease the swelling. Her right leg redness was marked. After antibiotic treatment her redness started to decrease. Her blood cultures remain negative and she remained afebrile during the hospital stay. Her WBC count remained within normal limits. Her Doppler studies remained negative for DVT. Later on her antibiotics were changed to Augmentin. As patient reported that she was not able to tolerate Keflex last time. With keflex she mentioned nausea and stomach upset. Patient was given first dose of Augmentin in the hospital and she was monitored for stomach upset and nausea. Her EKG didn't show any acute cardiac ischemic injury. She remained asymptomatic without any nausea. Patient was instructed to take Augmentin for 5 more days to complete a total 7 days antibiotic course. ALECIA: Patient had acute kidney injury probably due to dehydration. Initially IV hydration was done and later on patient was encouraged to take oral fluids. Nephrotoxic medications were provided. Losartan was held considering her acute kidney injury. Her BUN and creatinine level were monitored. Later on her kidney function improved. Later on her acute kidney injury resolved and losartan was restarted. History of hypertension and hyperlipidemia: During hospital stay initially her losartan was held but later on after her acute kidney injury had been resolved and it was resumed. Patient received Lipitor for hyperlipidemia. After the discharge patient was instructed to continue her hydrochlorothiazide. During the hospital stay her blood pressure was in the low 100 that's for hydrochlorothiazide was not given. DVT prophylaxis: Mechanical and subcutaneous heparin CODE STATUS: Full code Allergies: Coded Allergies: codeine (Intermediate, GI UPSET 09/08/17) Pertinent Lab Results: Chest x-ray on 09/18/2017: IMPRESSION: No acute pulmonary findings. Doppler study on 09/19/2017: IMPRESSION: No evidence of deep venous thrombosis in the right lower extremity. WBC count 3.0, hemoglobin 10.6, hematocrit 31.7, platelet count 145, sodium 138, potassium 4.3, BUN 19, creatinine 0.7 Disposition Summary Disposition Principal Diagnosis: Right leg cellulitis Acute kidney injury Additional Diagnosis: History of hypertension and hyperlipidemia Discharge Disposition: home or self care Discharge Instructions General Discharge Information Code Status: Full Code Patient's Diet: Regular diet Patient's Activity: Self-limited Follow-Up Instructions/Appts: Please follow with your PCP within one week of discharge. Please take your medications as instructed, please come back to hospital if symptoms worsen. Medications at Discharge Discharge Medications: Stop taking the following medications: Sulfamethoxazole/Trimethoprim (Bactrim Ds Tablet) 800 MG-160 MG TABLET ORAL TWICE DAILY Qty = 20 Cephalexin (Keflex) 500 MG CAPSULE ORAL 4 TIMES A DAY Qty = 40 Continue taking these medications: Meclizine HCl (Meclizine HCl) 25 MG TABLET 1 Tablet ORAL THREE TIMES A DAY NEEDED Qty = 30 Comments: NOT GIVEN IN THE HOSPITAL. Hydrochlorothiazide (Hydrochlorothiazide) 25 MG TABLET 1 Tablet ORAL DAILY Qty = 90 Comments: NOT GIVEN IN HOSPITAL. Olmesartan Medoxomil (Benicar) 20 MG TABLET 1 Tablet ORAL DAILY Qty = 90 Comments: NOT GIVEN IN THE HOSPITAL Start taking the following new medications: Amoxicillin/Potassium Clav (Augmentin 875-125 Tablet) 875 MG-125 MG TABLET 1 Tablet ORAL TWICE DAILY Qty = 8 No Refills Instructions: . Comments: Last Taken:09/21/17 Time:11.29 AM Copies To: Aster IVAN,Milton Bojras
[2017-09-21 14:27] VITALS: BP 134/72
== END 2017-09-21 16:40 | disposition home health service (06) | DRG 603 ==
LOC: ERH 19:49 → ERHI 23:07 → 2NB 23:07 → ENRESERV 09-19 00:13 → 2NB 09-19 00:58 → ENTRNSPT 09-21 16:33 → 2NB 09-21 16:40 → EDTRNSPT 09-21 16:46 → EDTRNSPTSTS 09-21 16:46 → CMPTRNSPT 09-21 16:48
PROVIDERS: Physician Assistant; Radiology Vascular & Interventional Radiology; Student in an Organized Health Care Education/Training Program
DX: L03.115 Cellulitis of right lower limb (principal); N17.9 Acute kidney failure, unspecified; E86.0 Dehydration; I87.8 Other specified disorders of veins; I10 Essential (primary) hypertension; E78.5 Hyperlipidemia, unspecified; R42 Dizziness and giddiness; Z91.14 Patient's other noncompliance with medication regimen
CPT/HCPCS: 2NBSP; ERO; 36415; 36592; 71046; 81003; 82436; 87040; 93005; 93010; J0456; J1644; J3370; J7040

== ENCOUNTER 2017-10-07 13:35 | Inpatient (IN) | payer OTHER ==
[~2017-10-07] VITALS: Ht 165.1 cm; Wt 91.2 kg
[~2017-10-07 13:35] MED LIST changes: +AUGMENTIN 875-1 EACH PO; +BENICAR20 M1 PO
[2017-10-07 17:30] LABS: ABSOLUTE BASOPHIL COUNT 0.1 /CUMM (0.0-0.2); ABSOLUTE EOSINOPHIL COUNT 0.1 /CUMM (0.0-0.7); ABSOLUTE GRANULOCYTE CT 3.1 /CUMM (1.4-6.5); ABSOLUTE LYMPH COUNT 1.2 /CUMM (1.2-3.4); ABSOLUTE MONOCYTE COUNT 0.5 /CUMM (0.10-0.60); BASOPHIL % 1.2 % (0.0-2.0); EOSINOPHIL % 1.7 % (0-5); GRANULOCYTE % 63.4 % (42.2-75.2); HEMATOCRIT 38.7 % (37-47); MEAN CORPUSCULAR HGB 27.9 PG (27.0-31.0); MEAN CORPUSCULAR HGB CONC 32.5 G/DL (33.0-37.0); MEAN CORPUSCULAR VOLUME 85.9 FL (81.0-99.0); MEAN PLATELET VOLUME 8.6 FL (7.4-10.4); PLATELET COUNT 273 /CUMM (130-400); RBC DISTRIBUTION WIDTH 14.7 % (11.5-14.5)
--- NOTE | 2017-10-07 19:25 | ED UPPER/LOWER EXTREMITY COMPL ---
History of Present Illness General Chief Complaint: Lower Extremity Problems Stated Complaint: CELLULITIS; SENT BY PCP Source: patient Exam Limitations: no limitations Vital Signs & Intake/Output Vital Signs & Intake/Output Vital Signs Date Time Temp Pulse Resp B/P B/P Pulse O2 O2 Flow FiO2 Mean Ox Delivery Rate 10/07 2050 98.2 91 18 149/75 99 Room Air 10/07 2041 Room Air 10/07 1518 98.4 96 18 167/89 98 Room Air Allergies Coded Allergies: codeine (Intermediate, GI UPSET 09/08/17) Reconcile Medications Amoxicillin/Potassium Clav (Augmentin 875-125 Tablet) 875 MG-125 MG TABLET 1 TAB PO BID Skin infection . Hydrochlorothiazide 25 MG TABLET 1 TAB PO DAILY HTN (Reported) Meclizine HCl 25 MG TABLET 1 TAB PO TIDPRN DIZZY (Reported) Olmesartan Medoxomil (Benicar) 20 MG TABLET 1 TAB PO DAILY HEART HEALTH ( Reported) Sulfamethoxazole/Trimethoprim (Bactrim Ds Tablet) 800 MG-160 MG TABLET 1 TAB PO BID cellulitis Triage Note: 77 YO FEMALE TO TRIAGE FOR EVAL OF CELLULITIS. STATES WAS ADMITTED FOR THE RLE CELLUTLITS AND THEN SENT HOME ON PO. STATES LEG IS WORSE. NOTED WITH REDNESS TO RLE. Triage Nurses Notes Reviewed? yes Onset: Gradual Duration: constant Timing: recent history Severity: moderate Severity Numbers: 5 HPI: Patient is a 77-year-old female who presents emergency room with concerns of cellulitis to the right lower extremity, patient was admitted to [facility] on September 18 and discharged on September 21 for concerns of right leg cellulitis where old records indicate that patient had improvement of saline this patient was given prescription of Augmentin and she took this for approximately one week however she had this medication change due to adverse reaction where she has been on 3 days of doxycycline with no improvement of her redness to her right leg. Denies any fever or chills cough shortness of breath, hemoptysis and is otherwise without complaints. (Mook Paris) Past History Travel History Traveled to [place] past 21 day No Medical History Any Pertinent Medical History? 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 No (Mook Paris) Review of Systems Review of Systems Constitutional: Reports: no symptoms. EENTM: Reports: no symptoms. Respiratory: Reports: no symptoms. Cardiovascular: Reports: no symptoms. Gastrointestinal/Abdominal: Reports: no symptoms. Genitourinary: Reports: no symptoms. Musculoskeletal: Reports: no symptoms. Skin: Reports: see HPI, erythema. Neurological/Psychological: Reports: no symptoms. Hematologic/Endocrine: Reports: no symptoms. Immunological: Reports: no symptoms. All Other Systems: Reviewed and Negative (Mook Paris) Physical Exam Physical Exam General Appearance: no apparent distress, alert, comfortable Head: atraumatic Eyes: Bilateral: normal appearance. Ears, Nose, Throat: hearing grossly normal Neck: normal inspection Peripheral Pulses: 2+ dorsalis pedis (R) Neurologic/Tendon: normal sensation, normal motor functions, normal tendon functions, responds to pain, no evidence tendon injury, no pulse deficit Skin: intact Diagram Legs Front/Back 1) Noted circumferential erythema warmth and point tenderness no induration or fluctuance dermatomes intact (Mook Paris) Progress Differential Diagnosis: arterial insufficiency, cellulitis, CHF, compartment syndrome, contusion, dislocation, DVT, fracture, gout, septic arthritis, sprain, tendon injury Plan of Care: Orders Procedure Date/time Status Heart Healthy Diet 10/08 B Active ED Holding Orders 10/07 2024 Active Admit to inpatient 10/07 2024 Active Vital Signs 10/07 2024 Active Code Status 10/07 2024 Active BLOOD CULTURE 10/07 2004 Active Intake & Output 10/07 191 Active Patient Data 10/07 1644 Active LACTIC ACID 10/07 153 Complete COMPREHENSIVE METABOLIC PANEL 10/07 153 Complete CBC WITHOUT DIFFERENTIAL 10/07 153 Complete Laboratory Tests 10/07/17 1832: Lactic Acid Cancelled 10/07/17 1714: Anion Gap 13, Estimated GFR > 60, BUN/Creatinine Ratio 30.0 H, Glucose 99, Lactic Acid 0.7, Calcium 10.8 H, Total Bilirubin 0.5, AST 20, ALT 17, Alkaline Phosphatase 121, Total Protein 8.1, Albumin 4.5, Globulin 3.6, Albumin/Globulin Ratio 1.3, CBC w Diff NO MAN DIFF REQ, RBC 4.50, MCV 85.9, MCH 27.9, MCHC 32.5 L, RDW 14.7 H, MPV 8.6, Gran % 63.4, Lymphocytes % 24.0, Monocytes % 9.7 H, Eosinophils % 1.7, Basophils % 1.2, Absolute Granulocytes 3.1, Absolute Lymphocytes 1.2, Absolute Monocytes 0.5, Absolute Eosinophils 0.1, Absolute Basophils 0.1 Microbiology 10/07 2033 BLOOD: Blood Culture - RECD 10/08 2019 BLOOD: Blood Culture - RECD On examination patient has persistent cellulitis however concerns of sepsis ultrasound was ordered for evaluation of abscess or DVT, I had a long extensive conversation with patient and family members in which I discussed ultrasound results in which no concern of DVT or abscess, surgical pen markings were made for the erythema of patient's right lower extremity patient return to emergency room stating that her symptoms have not resolved however does state that the erythema has improved Patient was offered admission or begin Bactrim and to be reevaluated in 2 days however they felt more comfortable of the patient would better be served to be admitted due to the longevity of the antibiotics and not resolving right lower extremity cellulitis Diagnostic Imaging: Viewed by Me: Ultrasound. Radiology Impression: no acute abnormality Comments: PATIENT: SVETLANA BARROS PRESENT AGE: 77 PATIENT ACCOUNT NO: [id number] : 41 LOCATION: [facility] ORDERING PHYSICIAN: Jose ALEJANDRO SERVICE DATE: 10/07/17 EXAM TYPE: US - US-SUPERFICIAL IMAGING EXTREMI EXAMINATION: US SUPERFICIAL IMAGING, EXTREMITY CLINICAL INFORMATION: Evaluate for abscess right lower extremity redness. COMPARISON: X-ray of the right foot August 2017. Venous Doppler exam September 2017 TECHNIQUE: Targeted soft tissue ultrasound of the medial anterior lower calf in the area of concern. FINDINGS: No focal mass or localized fluid collection. Findings compatible with mild generalized edema in the subcutaneous soft tissues. IMPRESSION: No localized mass or fluid collection. Findings compatible with edema in the subcutaneous soft tissues DICTATED BY: Gaudencio Turpin MD DATE/TIME DICTATED:10/07/171933 AIR BAG BUFFER:ANG DATE/TIME TRANSCRIBED:10/07/17 / (Mook Paris) Departure Departure Disposition: STILL A PATIENT Condition: Stable Clinical Impression Primary Impression: Cellulitis of right leg Referrals: Aster IVAN,Milton Borjas (PCP/Family) Departure Forms: Customer Survey General Discharge Information Prescriptions: Current Visit Scripts Sulfamethoxazole/Trimethoprim (Bactrim Ds Tablet) 1 TAB PO BID #20 TAB Admission Note Spoke With: Alex Rothman MD Documentation of Exam: Documentation of any treatments & extenuating circumstances including Concerns Regarding Discharge (functional status, medication knowledge or non-compliance, living conditions, etc.) that warrant an admission rather than observation: [ Patient requires IV antibiotics repeat blood work foot elevation case management consultation wound care evaluation] (Mook Paris) Admission Note Documentation of Exam: Documentation of any treatments & extenuating circumstances including Concerns Regarding Discharge (functional status, medication knowledge or non-compliance, living conditions, etc.) that warrant an admission rather than observation: Patient seen refractory cellulitis right lower extremity. She has erythema. Decreased pulses to the right dorsalis pedis pulse. PA/BUILDING CLEANER Co-Sign Statement Statement: ED Attending supervision documentation- [X] I saw and evaluated the patient. I have also reviewed all the pertinent lab results and diagnostic results. I agree with the findings and the plan of care as documented in the PA's/BUILDING CLEANER's documentation. [] I have reviewed the ED Record and agree with the PA's/BUILDING CLEANER's documentation. [] Additions or exceptions (if any) to the PAs/BUILDING CLEANER's note and plan are summarized below: [] (Matias Arias DO
--- NOTE | 2017-10-07 19:42 | ULTRASOUND REPORT ---
EXAMINATION: US SUPERFICIAL IMAGING, EXTREMITY CLINICAL INFORMATION: Evaluate for abscess right lower extremity redness. COMPARISON: X-ray of the right foot August 2017. Venous Doppler exam September 2017 TECHNIQUE: Targeted soft tissue ultrasound of the medial anterior lower calf in the area of concern. FINDINGS: No focal mass or localized fluid collection. Findings compatible with mild generalized edema in the subcutaneous soft tissues. IMPRESSION: No localized mass or fluid collection. Findings compatible with edema in the subcutaneous soft tissues
[2017-10-07] MEDS ORDERED: BACTRIM DS TAB1 EACH PO (19:49)
--- NOTE | 2017-10-07 20:55 | History & Physical ---
Teri Paez 10/07/172053: General Information and HPI MD Statement: I have seen and personally examined SVETLANA FRANCO and documented this H&P. The patient is a 77 year old F who presented with a patient stated chief complaint of []. Source of Information: patient, family Exam Limitations: no limitations History of Present Illness: Ms. Franco is a 77yo F w/ PMH of hypertension, hyperlipidemia, vertigo, cataracts , status post tonsillectomy/tubal ligation, presented for recurrent left lower extremity redness ever since last discharge from on 09/21/2017 for cellulitis treated with Augmentin for additional 5 days after discharge. Patient claims to be compliant with Augmentin for 5 days after last discharge. However the redness was not going away, and patient felt episodic burning of the right lower extremity redness area, however not been affecting her ambulation that she can ambulate without a cane/walker, and no pain while ambulating. Patient was seen her PCP for several times due to this man has not been retracting, and her PCP started her on doxycycline 4 days prior to this admission, and she completed course, however the redness did not improve as well , and the PCP advised her to come to the ER for further evaluation today. Patient stated some episodes of hypotension prior to this admission, and her dose of Benicar was decreased in half. She is also taking hydrochlorothiazide and been compliant to it. She was taking baby aspirin on and off, and she is not taking any lipid-lowering agents due to the fear of muscle spasm. During our clinical interaction, patient denied fever/night sweat/weight change/ Chest Pain/Palpitation/Abdominal pain/bowel movement or urinary abnormality, or other skin/musculoskeletal/neurological/mood disorders, or dietary/appetite change. -Smoking: Denies -Alcohol: Social -Rec Drugs: Denied Allergies/Medications Allergies: Coded Allergies: codeine (Intermediate, GI UPSET 09/08/17) Home Med list Aspirin (Aspirin*) 81 MG TAB.CHEW 1 TAB PO DAILY Heart (Reported) Hydrochlorothiazide 25 MG TABLET 1 TAB PO DAILY HTN (Reported) Meclizine HCl 25 MG TABLET 1 TAB PO TIDPRN DIZZY (Reported) Olmesartan Medoxomil (Benicar) 20 MG TABLET 1 TAB PO DAILY HEART HEALTH ( Reported) Past History Travel History Traveled to [place] past 21 day No Medical History Neurological: vertigo EENT: cataracts Cardiovascular: hypertension Respiratory: NONE, NONE Gastrointestinal: constipation Hepatic: NONE Renal: NONE Musculoskeletal: NONE Psychiatric: NONE Endocrine: NONE Blood Disorders: NONE Cancer(s): NONE 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 Ambulation: independent IADLs Independent: shopping, housework, finances, food prep, telephone, transportation , medication admin. Review of Systems Review of Systems Constitutional: Reports: see HPI. Exam & Diagnostic Data Last 24 Hrs of Vital Signs/I&O Vital Signs Date Time Temp Pulse Resp B/P B/P Pulse O2 O2 Flow FiO2 Mean Ox Delivery Rate 10/07 2209 98.0 83 18 142/72 98 Room Air 10/07 2050 98.2 91 18 149/75 99 Room Air 10/07 2042 Room Air 10/07 1518 98.4 96 18 167/89 98 Room Air Intake & Output 10/07 1600 10/07 0800 10/07 0000 Intake Total Output Total Balance Patient 90.718 kg Weight Weight Reported by Patient Measurement Method Physical Exam General Appearance Alert, Oriented X3, Cooperative, No Acute Distress Skin No Rashes, No Breakdown, No Significant Lesion Skin Temp/Moisture Exam: Warm/Dry Sepsis Skin Exam (color): Normal for Ethnicity HEENT Atraumatic, PERRLA Neck Supple, No JVD Cardiovascular Regular Rate Lungs Clear to Auscultation, Normal Air Movement Abdomen Normal Bowel Sounds, Soft, No Tenderness, No Hepatospenomegaly Neurological Normal Speech, Strength at 5/5 X4 Ext Extremities No Clubbing, No Cyanosis, BL lower extremity/ankles chronic skin change with more prominent redness on the right, and tenderness upon pressing. NO elevation of skin temp on the right compare to left. BL +1 pitting edema BL faint pedal pulses Last 24 Hrs of Labs/Te: Laboratory Tests 10/07/17 1832: Lactic Acid Cancelled 10/07/17 1714: Anion Gap 13, Estimated GFR > 60, BUN/Creatinine Ratio 30.0 H, Glucose 99, Lactic Acid 0.7, Calcium 10.8 H, Total Bilirubin 0.5, AST 20, ALT 17, Alkaline Phosphatase 121, Total Protein 8.1, Albumin 4.5, Globulin 3.6, Albumin/Globulin Ratio 1.3, CBC w Diff NO MAN DIFF REQ, RBC 4.50, MCV 85.9, MCH 27.9, MCHC 32.5 L, RDW 14.7 H, MPV 8.6, Gran % 63.4, Lymphocytes % 24.0, Monocytes % 9.7 H, Eosinophils % 1.7, Basophils % 1.2, Absolute Granulocytes 3.1, Absolute Lymphocytes 1.2, Absolute Monocytes 0.5, Absolute Eosinophils 0.1, Absolute Basophils 0.1 Microbiology 10/07 2033 BLOOD: Blood Culture - RECD 10/08 2019 BLOOD: Blood Culture - RECD Assessment/Plan Assessment: On admission, Vitals: Stable, afebrile, BP 167/89, 98% on room air -CBC: Unremarkable -BMP: Unremarkable, except calcium 10.8, -UA/Microbiology: -Extremity ultrasound:No localized mass or fluid collection. Findings compatible with edema in the subcutaneous soft tissues -Ultrasound 09/19/2017, showed no DVT. -Interventions in ER: Unasyn 1 Problem list & Assessment: Patient is now readmitted for the similar complaint of lower extremity redness. The redness started abruptly after that hitting her right lower extremity on . Patient had no previous history of abdominal/pelvis surgery, non- smoker, and has no increasing pain associated with exercising/ambulating. During our examination, patient had no fever, no leukocytosis, and no elevation of skin temperature of the lower right extremity compared to the left, despite being cool on the toes, and very faint pulse of bilateral pedal arteries. At this point the lower extremity redness is with unclear etiology, unlikely to be cellulitis/infection as patient had been treated with numerous antibiotics. Patient may have peripheral vascular disease, however was unlikely to be abrupt onset after trauma, plus patient had known smoking history. At this point patient is not warranted for received antibiotics anymore #Lower extremity redness with unclear etiology #PMH of hypertension, hyperlipidemia, vertigo, cataracts, status post tonsillectomy/tubal ligation Hospital Course: - Admit to general medicine improvement on redness. DVT prophylaxis Lovenox + ALPS Regular Diet Full Code As Ranked By This Provider Problem List: 1. Cellulitis of right leg Core Measures/Misc (02/02) Acute Coronary Syndrome ACS Diagnosis: No Congestive Heart Failure Congestive Heart Failure Diagnosis No Cerebrovascular Accident CVA/TIA Diagnosis: No VTE (View Protocol) VTE Risk Factors Age>40 No Mechanical VTE Prophylaxis d/t N/A MechProphylax Ordered No VTE Pharm Prophylaxis d/t NA PharmProphylax ordered Sepsis (View protocol) Sepsis Present: No If YES complete Sepsis Event Note If YES complete Sepsis Event Note Lyn IVAN,[facility] 10/08/17 0010: Core Measures/Misc (02/02) Sepsis (View protocol) If YES complete Sepsis Event Note If YES complete Sepsis Event Note Resident Review Statement Resident Statement: examined this patient, discussed with editing intern, agreed with editing intern, reviewed EMR data (avail), discussed with nursing Other Findings: Svetlana is 77-year-old female with past medical history significant for hypertension , hyperlipidemia, vertigo who presented to ED with chief complaint of persistent right lower extremity erythema. Patient had a fall on September 08, after that started to develop lower extremity swelling and erythema of right lower extremity. Patient was admitted to hospital from September 18 - September 21 and treated with IV Unasyn and was discharged home with Augmentin for 5 days. Patient completed the course of antibiotic however reported persistent erythema and burning/needle sensation on the planter surface of right foot. Patient had 3-4 visits to her PCP since discharge because of the right leg erythema, was started on doxycycline on Friday and had 4 doses. Today patient went to PCP for same complaint and he advised her to go to ED for evaluation and possible admission. Patient denied any fever, chills, lower extremity warmness or tenderness, recurrent falls, gait instability, claudication, skin discoloration to cold exposure. She lives with her and daughter, independent in ADL and IADL, never smoker. Rest of review of systems negative. Patient denied any lower extremity surgeries. On admission vital signs temperature 98.4, pulse 96, blood pressure 167/89, respiratory rate 18 saturating 98% on room air Physical exam Patient alert, oriented 3 with no acute distress HEENT mucous membrane dry,EOMI, PERRLA, no sinus tenderness, neck supple No cervical lymphadenopathy CVS S1, S2 regular, no murmurs or rubs Chest bilateral normal air entry no added sound Abdomen soft, no tenderness, bowel sounds positive, no flank tenderness Lower extremity Right mild erythema of lower 1/3 of the anterior surface of right leg, no warmness, mild tenderness on deep touch, skin flaking around the right ankle, swelling +1 Left lower extremity. Left lower extremity mild pink and hyperpigmentation around left ankle, no warmness, no tenderness, +1 pedal edema. Bilateral peripheral pulses diminished right > left Neuromuscular sensory and motor intact, cranial nerves 12 intact Impression Patient is 77-year-old with past medical history of hypertension, hyperlipidemia and vertigo. She denied any history of CAD, diabetes, smoking. She was recently admitted for cellulitis of right lower extremity and received Unasyn, Augmentin and 4 days ago was started on doxycycline without significant improvement of the erythema. She seems very anxious about the erythema of right lower extremity, had multiple visits to the PCP since discharge on September 21 including today. Patient reported needles sensation, and burning sensation in the right lower extremity. She is independent and walks without assistance, no limping, no fever or chills. We do not think patient has a recurrent cellulitis as her bilateral lower extremity has some skin changes, diminished peripheral pulses, no significant warmness or tenderness. Patient had multiple antibiotic coverage, negative blood culture. Will treat as of peripheral vascular disease, will hold antibiotic and advised for leg elevation and vascular consultation mostly as an outpatient. Right lower extremity erythema mostly PVD related Mild hypercalcemia mostly due to dehydration Hypertension, hyperlipidemia Admit to general medical floor Vitals every shift Repeat CBCs and BEP in a.m. Obtain vitamin D and B12 Hold off antibiotics Continue leg elevation Encourage oral intake Repeat calcium in a.m. Educated patient about statin side effects, she is afraid from starting statin because of muscle spasm and side effect that she heard about from relatives Continue home medication HCTZ 12.5, Benicar 20 mg DVT prophylaxis Alps to left lower extremity and Lovenox Diet heart healthy Code Full Alex Rothman 10/08/17 0041: Core Measures/Misc (02/02) Sepsis (View protocol) If YES complete Sepsis Event Note If YES complete Sepsis Event Note Attending MD Review Statement Attending Statement Attending MD Statement: examined this patient, discuss w/resident/PA/SHEET METAL SMITH, agreed w/resident/PA/SHEET METAL SMITH, reviewed EMR data (avail), reviewed images, amended to note Attending Assessment/Plan: CC: Right leg redness PMH: HTN, HLD, vertigo She was admitted from September 18 to September 21 for cellulitis. At that time she had mechanical fall approximately 3 weeks before that and a week later she came to ER for redness and swelling. She was diagnosed to have cellulitis, treated with an IV antibiotics and was discharged. She came back again after a week for fever at home of 101, worsening redness and erythema and was then admitted and was treated with Unasyn and discharged on Augmentin. Patient states that even after completion of treatment her redness persisted, she waited 2 weeks and went to see her PCP approximately 4-5 days back when she was prescribed doxycycline. The redness was not going away so she followed up again and she was suggested to go to ER. Patient has stinging pain in lower extremities, more on right than left but did not have any fever or chills at home, warmth. She has been ambulating without much problem. Vitals: Temperature 98.4, pulse 96, RR 18, blood pressure 167/89, saturating 98% on room air On exam: A O 3, cooperative, no acute distress, neck supple, JVD normal, no lymphadenopathy, mucosa moist, no focal neurological deficit, no dependent edema , CVS: S1-S2, RRR. RS: Clear to auscultate bilaterally. Abdomen: Soft, NT, ND, bowel sounds present. Aflonso ankles and shins: chronic skin change with more prominent redness on the right, and tenderness upon pressing. But temp is same on right and left side; pulses diminished. right lower extremity superficial ultrasound: No localized mass or fluid collection. Findings compatible with edema in the subcutaneous soft tissues Assessment and plan Patient came to ER for persistent redness and right lower extremity. This redness appears since last several weeks. She was treated for cellulitis in first week of September, at that time she had fever and bandemia. Her concern is redness persisted even after treatment. On examination there is mild redness on right lower extremity compared to left, sensitive to touch but no severe pain, no fluctuation, she has shiny and flaky skin decreased, peripheral pulses in dorsalis pedis. The skin discoloration of the wrist secondary to peripheral vascular disease. Patient should follow up outpatient for vascular studies and her conduction studies. We will watch off antibiotics. If she spikes fever, has significant leukocytosis tomorrow then reconsidered for antibiotics. Consider infectious disease consult if required. + Right leg redness + History of HTN, HLD, vertigo - Admit to general medicine - Plan as above
[2017-10-07] MEDS ORDERED: ASPIRIN81 M4 PO (21:36)
[2017-10-07 22:10] VITALS: BP 142/72
[2017-10-08 00:25] VITALS: BP 120/70
--- NOTE | 2017-10-08 00:43 | Admission Certification ---
Admission Certification Certification Statement - As attending physician, I certify that at the time of - admission, based on clinical presentation, severity of - symptoms, need for further diagnostic testing and - therapeutic interventions, and risk of adverse outcomes - without in-hospital treatment, in my clinical assessment, - this patient requires an acute hospital stay for a minimum - of two nights or longer. I have also considered psychsocial - factors such as support system, advanced age, financial - issues, cognitive issues, and failed out-patient treatments, - past re-admission history, safety of patient, and lack of - compliance as applicable. Specific rationale supporting this admission is: Persistent right leg redness
[2017-10-08 06:23] VITALS: BP 128/70
--- NOTE | 2017-10-08 07:42 | PN- Housestaff ---
Eliseo Carbajal 10/08/17 0742: Subjective Follow-up For: #LLE skin erythema suspected to be due to PVD #HyperPTH Subjective: Patient reports BLE paresthesia and numbness. She denies fever, chills, nausea, vomiting, urinary or bowel symtpoms Review of Systems Constitutional: Reports: see HPI. Objective Last 24 Hrs of Vital Signs/I&O Vital Signs Date Time Temp Pulse Resp B/P B/P Pulse O2 O2 Flow FiO2 Mean Ox Delivery Rate 10/08 0831 128/62 10/08 06 97.6 75 18 128/70 99 Room Air 10/08 0025 68 120/70 10/07 2210 98.0 83 18 142/72 98 Room Air 10/07 2050 98.2 91 18 149/75 99 Room Air 10/07 2041 Room Air 10/07 1518 98.4 96 18 167/89 98 Room Air Intake & Output 10/08 1600 10/08 0800 10/08 0000 Intake Total 120 0 Output Total 500 300 Balance -500 -180 0 Intake, Oral 120 0 Output, Urine 500 300 Patient 201 lb 204 lb Weight Weight Bed scale Measurement Method Physical Exam General Appearance: Alert, Oriented X3, Cooperative, No Acute Distress Cardiovascular: Regular Rate, Normal S1, Normal S2 Lungs: Clear to Auscultation, Normal Air Movement Abdomen: Normal Bowel Sounds, Soft, No Tenderness Extremities: BLE skin discoloration due to venous changes. RLE mild skin erythema without any visible lesion, Trace edema Current Medications: Current Medications Sig/Vin Start time Last Medication Dose Route Stop Time Status Admin Acetaminophen 325 MG Q6P PRN 10/075 AC PO Acetaminophen 650 MG ONCE ONE 10/07 2244 DC PO 10/07 2245 Ampicillin Sodium/ 0 .STK-MED ONE 10/08 2051 DC Sulbactam Sodium .ROUTE Ampicillin Sodium/ 1,500 MG ONCE ONE 10/07 2014 DC 10/07 Sulbactam Sodium IV 10/07 Sodium Chloride 100 ML Aspirin 81 MG DAILY 10/08 899 AC 10/08 PO 0832 Docusate Sodium 100 MG DAILY NEEDED PRN 10/07 2244 AC PO Enoxaparin Sodium 40 MG DAILY 10/08 899 AC 10/08 SC 0832 Hydrochlorothiazide 12.5 MG DAILY 10/08 899 CAN PO Losartan Potassium 50 MG DAILY 10/08 899 AC 10/08 PO 0831 Polyethylene Glycol 17 GM AT BEDTIME 10/08 2100 AC PO Last 24 Hrs of Lab/Te Results Last 24 Hrs of Labs/Mics: Laboratory Tests 10/08/17 0655: Anion Gap 8, Estimated GFR > 60, BUN/Creatinine Ratio 31.3 H, Calcium 9.8, PTH Intact Pending, CBC w Diff NO MAN DIFF REQ, RBC 3.95 L, MCV 86.4, MCH 28.5, MCHC 33.0, RDW 15.1 H, MPV 8.9, Gran % 57.4, Lymphocytes % 26.4, Monocytes % 11.9 H, Eosinophils % 3.8, Basophils % 0.5, Absolute Granulocytes 2.0, Absolute Lymphocytes 0.9 L, Absolute Monocytes 0.4, Absolute Eosinophils 0.1, Absolute Basophils 0 10/07/17 1832: Lactic Acid Cancelled 10/07/17 1714: Anion Gap 13, Estimated GFR > 60, BUN/Creatinine Ratio 30.0 H, Glucose 99, Lactic Acid 0.7, Calcium 10.8 H, Total Bilirubin 0.5, AST 20, ALT 17, Alkaline Phosphatase 121, Total Protein 8.1, Albumin 4.5, Globulin 3.6, Albumin/Globulin Ratio 1.3, Vitamin B12 558, 25-OH Vitamin D Total 26.2 L, CBC w Diff NO MAN DIFF REQ, RBC 4.50, MCV 85.9, MCH 27.9, MCHC 32.5 L, RDW 14.7 H, MPV 8.6, Gran % 63.4, Lymphocytes % 24.0, Monocytes % 9.7 H, Eosinophils % 1.7, Basophils % 1.2, Absolute Granulocytes 3.1, Absolute Lymphocytes 1.2, Absolute Monocytes 0.5 , Absolute Eosinophils 0.1, Absolute Basophils 0.1 Microbiology 10/07 2033 BLOOD: Blood Culture - RECD 10/08 2019 BLOOD: Blood Culture - RECD Assessment/Plan Assessment: Ms. Franco is a 77yo F w/ PMH of hypertension, hyperlipidemia, vertigo, cataracts , status post tonsillectomy/tubal ligation, presented for recurrent left lower extremity redness ever since last discharge from [facility] on 09/21/2017 for cellulitis treated with Augmentin for additional 5 days after discharge Problem list: #LLE skin erythema suspected to be due to PVD #HyperPTH Plan: Vascular consult, SHIRA 0.9 Patient request ID consult Will give her a referral to Dermatology upon discharge as per patient request Watch off antibiotics Elevate legs Endo consult for hyperparathyroidism Diet: Heart healthy DVT ppx: ALPS Code: FULL Problem List: 1. Venous insufficiency of both lower extremities Pain Ratin Pain Location: NA Pain Goal: Remain pain free Pain Plan: NA Tomorrow's Labs & Rationales: none Halley Epperson MD 10/08/17 1146: Attending MD Review Statement Attending Statement Attending MD Statement: examined this patient, discuss w/resident/PA/INTELLIGENCE OPERATIONS SPECIALIST, agreed w/resident/PA/INTELLIGENCE OPERATIONS SPECIALIST, discussed with family, reviewed EMR data (avail), discussed with nursing, discussed with case mgmt, reviewed images, amended to note Attending Assessment/Plan: Patient seen and examined, feels the same. She still has some erythema rle. Pt has received multiple treatments for cellulitis. This time admitted with recurrent erythema on rle. Vital Signs Date Time Temp Pulse Resp B/P B/P Pulse O2 O2 Flow FiO2 Mean Ox Delivery Rate 10/08 0831 128/62 10/08 0623 97.6 75 18 128/70 99 Room Air 10/08 0025 68 120/70 10/07 2210 98.0 83 18 142/72 98 Room Air 10/07 2050 98.2 91 18 149/75 99 Room Air 10/07 2042 Room Air 10/07 1518 98.4 96 18 167/89 98 Room Air on exam; aox3, and. cv; s1,s2, rrr resp; clear abd; soft. nt, bs+ ext; + erythema with slight warmth on the right lower extremity. We also checked pulses by Doppler. Strong pulse on the left, less strong pulse on the right dorsalis pedis b/l Laboratory Tests 10/08 10/07 0655 1832 Chemistry Sodium (137 - 145 mmol/L) 141 Potassium (3.5 - 5.1 mmol/L) 4.2 Chloride (98 - 107 mmol/L) 105 Carbon Dioxide (22 - 30 mmol/L) 28 Anion Gap (5 - 16) 8 BUN (7 - 17 mg/dL) 25 H Creatinine (0.5 - 1.0 mg/dL) 0.8 Estimated GFR (>60 ml/min) > 60 BUN/Creatinine Ratio (7 - 25 %) 31.3 H Lactic Acid Cancelled Calcium (8.4 - 10.2 mg/dL) 9.8 PTH Intact (18.4 - 80.1 pg/ML) 101.0 H Hematology CBC w Diff NO MAN DIFF REQ WBC (4.8 - 10.8 /CUMM) 3.5 L RBC (4.20 - 5.40 /CUMM) 3.95 L Hgb (12.0 - 16.0 G/DL) 11.3 L Hct (37 - 47 %) 34.1 L MCV (81.0 - 99.0 FL) 86.4 MCH (27.0 - 31.0 PG) 28.5 MCHC (33.0 - 37.0 G/DL) 33.0 RDW (11.5 - 14.5 %) 15.1 H Plt Count (130 - 400 /CUMM) 216 MPV (7.4 - 10.4 FL) 8.9 Gran % (42.2 - 75.2 %) 57.4 Lymphocytes % (20.5 - 51.1 %) 26.4 Monocytes % (1.7 - 9.3 %) 11.9 H Eosinophils % (0 - 5 %) 3.8 Basophils % (0.0 - 2.0 %) 0.5 Absolute Granulocytes (1.4 - 6.5 /CUMM) 2.0 Absolute Lymphocytes (1.2 - 3.4 /CUMM) 0.9 L Absolute Monocytes (0.10 - 0.60 /CUMM) 0.4 Absolute Eosinophils (0.0 - 0.7 /CUMM) 0.1 Absolute Basophils (0.0 - 0.2 /CUMM) 0 10/07 1714 Chemistry Sodium (137 - 145 mmol/L) 144 Potassium (3.5 - 5.1 mmol/L) 4.1 Chloride (98 - 107 mmol/L) 104 Carbon Dioxide (22 - 30 mmol/L) 27 Anion Gap (5 - 16) 13 BUN (7 - 17 mg/dL) 24 H Creatinine (0.5 - 1.0 mg/dL) 0.8 Estimated GFR (>60 ml/min) > 60 BUN/Creatinine Ratio (7 - 25 %) 30.0 H Glucose (65 - 99 mg/dL) 99 Lactic Acid (0.7 - 2.1 mmol/L) 0.7 Calcium (8.4 - 10.2 mg/dL) 10.8 H Total Bilirubin (0.2 - 1.3 mg/dL) 0.5 AST (14 - 36 U/L) 20 ALT (9 - 52 U/L) 17 Alkaline Phosphatase (<127 U/L) 121 Total Protein (6.3 - 8.2 g/dL) 8.1 Albumin (3.5 - 5.0 g/dL) 4.5 Globulin (1.9 - 4.2 gm/dL) 3.6 Albumin/Globulin Ratio (1.1 - 2.2 %) 1.3 Vitamin B12 (239 - 931 pg/mL) 558 25-OH Vitamin D Total (30 - 100 ng/ml) 26.2 L Hematology CBC w Diff NO MAN DIFF REQ WBC (4.8 - 10.8 /CUMM) 5.0 RBC (4.20 - 5.40 /CUMM) 4.50 Hgb (12.0 - 16.0 G/DL) 12.6 Hct (37 - 47 %) 38.7 MCV (81.0 - 99.0 FL) 85.9 MCH (27.0 - 31.0 PG) 27.9 MCHC (33.0 - 37.0 G/DL) 32.5 L RDW (11.5 - 14.5 %) 14.7 H Plt Count (130 - 400 /CUMM) 273 MPV (7.4 - 10.4 FL) 8.6 Gran % (42.2 - 75.2 %) 63.4 Lymphocytes % (20.5 - 51.1 %) 24.0 Monocytes % (1.7 - 9.3 %) 9.7 H Eosinophils % (0 - 5 %) 1.7 Basophils % (0.0 - 2.0 %) 1.2 Absolute Granulocytes (1.4 - 6.5 /CUMM) 3.1 Absolute Lymphocytes (1.2 - 3.4 /CUMM) 1.2 Absolute Monocytes (0.10 - 0.60 /CUMM) 0.5 Absolute Eosinophils (0.0 - 0.7 /CUMM) 0.1 Absolute Basophils (0.0 - 0.2 /CUMM) 0.1 A/P: 77 y/o F with pmh sig for hypertension, hyperlipidemia, vertigo, cataracts, status post tonsillectomy/tubal ligation, presented for recurrent right lower extremity redness and has been treated for cellulitis in the past now admitted with recurrent erythema on the right lower extremity. Initial concern was for cellulitis and patient received antibiotics in the emergency room. Later because she was afebrile with white count normal, antibiotics were discontinued. Patient requesting infectious disease consult. We'll also get vascular surgery consult. Possibility off effective arterial supply with atherosclerosis is there.Will check SHIRA. She has been watched off of antibiotics. Also noted slight hypercalcemia which has normalized as well as high PTH. Please call endocrinology. Her hydrochlorothiazide was also discontinued secondary to hypercalcemia. Continue the rest of the medications. DVT prophylaxis: Lovenox. Discussed with patient's daughter over the phone.
[2017-10-08 08:22] LABS: ABSOLUTE BASOPHIL COUNT 0 /CUMM (0.0-0.2); ABSOLUTE EOSINOPHIL COUNT 0.1 /CUMM (0.0-0.7); ABSOLUTE LYMPH COUNT 0.9 /CUMM (1.2-3.4); ABSOLUTE MONOCYTE COUNT 0.4 /CUMM (0.10-0.60); BASOPHIL % 0.5 % (0.0-2.0); EOSINOPHIL % 3.8 % (0-5); GRANULOCYTE % 57.4 % (42.2-75.2); HEMATOCRIT 34.1 % (37-47); MEAN CORPUSCULAR HGB 28.5 PG (27.0-31.0); MEAN CORPUSCULAR VOLUME 86.4 FL (81.0-99.0); MEAN PLATELET VOLUME 8.9 FL (7.4-10.4); PLATELET COUNT 216 /CUMM (130-400); RBC DISTRIBUTION WIDTH 15.1 % (11.5-14.5); RED BLOOD CELL CT 3.95 /CUMM (4.20-5.40); WHITE BLOOD CELL COUNT 3.5 /CUMM (4.8-10.8)
--- NOTE | 2017-10-08 12:10 | Cons- Vascular Surgery ---
General Information and HPI Consulting Request Date of Consult: 10/08/17 Requested By: Halley Epperson MD Reason for Consult: venous stasis Source of Information: patient Exam Limitations: no limitations History of Present Illness: 77 y/o f presents with bilateral chronic venous stasis and right leg cellulitis. pt has history of hld, neuropathy of the feet. denies smoking or dm. Was recently treated for lower extremity cellulitis. Returned to er with recurrent cellulitis of right leg. leg is warm to tough without significant erythema at this time. wbc normal afebrile. pt reports she has developed chronic skin changes of the leg over last few years. Allergies/Medications Allergies: Coded Allergies: codeine (Intermediate, GI UPSET 09/08/17) Home Med List: Aspirin (Aspirin*) 81 MG TAB.CHEW 1 TAB PO DAILY Heart (Reported) Hydrochlorothiazide 25 MG TABLET 1 TAB PO DAILY HTN (Reported) Meclizine HCl 25 MG TABLET 1 TAB PO TIDPRN DIZZY (Reported) Olmesartan Medoxomil (Benicar) 20 MG TABLET 1 TAB PO DAILY HEART HEALTH ( Reported) Past History Medical History Blood Transfusion Hx: No Neurological: vertigo EENT: cataracts Cardiovascular: hypertension Respiratory: NONE, NONE Gastrointestinal: constipation Hepatic: NONE Renal: NONE Musculoskeletal: NONE Psychiatric: NONE Endocrine: NONE Blood Disorders: NONE Cancer(s): NONE STAFF CYTOTECHNOLOGIST/Reproductive: NONE Surgical History Pertinent Surgical History: non-contributory Psychosocial History Where Do You Live? Home Services at Home: Nursing, Physical Therapy Smoking Status: Never Smoked ETOH Use: occasional use Illicit Drug Use: denies illicit drug use Functional Ability ADLs Independent: dressing, eating, toileting, bathing. Ambulation: independent IADLs Independent: shopping, housework, finances, food prep, telephone, transportation , medication admin. Review of Systems Review of Systems: 12 point review of symptoms performed-- notable for leg swelling Exam & Diagnostic Data Vital Signs and I&O Vital Signs Date Time Temp Pulse Resp B/P B/P Pulse O2 O2 Flow FiO2 Mean Ox Delivery Rate 10/08 0831 128/62 10/08 0623 97.6 75 18 128/70 99 Room Air 10/08 0025 68 120/70 10/070 98.0 83 18 142/72 98 Room Air 10/07 2050 98.2 91 18 149/75 99 Room Air 10/07 2042 Room Air 10/07 1518 98.4 96 18 167/89 98 Room Air Intake & Output 10/08 1600 10/08 0800 10/08 0000 10/07 1600 10/07 0810/07 0000 Intake Total 120 0 Output Total 500 300 Balance -500 -180 0 Intake, Oral 120 0 Output, Urine 500 300 Patient 201 lb 204 lb 200 lb Weight Weight Bed scale Reported by Patient Measurement Method nad soft,nt,nd bilateral feet wwp chronic bilateral leg venous satsis changes-- lipodermosclerosis. right leg warm to touch palpable dp pulses bilaterally Assessment/Plan Assessment/Plan 77 y/of w/ chronic venous stasis and right leg cellulitis -leg elevation/compression therapy -abx -pt should fu with me upon discharge to evaluate for venous insufficency discussed plan with pt. please call with further questions. Consult Acknowledgment - Thank you for your consult request.
--- NOTE | 2017-10-08 12:12 | Patient Discharge Instructions ---
Discharge Instructions General Discharge Information You were seen/treated for: Venous insufficiency Hypercalcemia You had these procedures: none Special Instructions: Follow up with the vasular surgeon-Dr. Uriostegui upon discharge Follow up with the Separator [employer]-Dr. Mckeon within 1 week of discharge Your Hydrochlorathiazide was stopped due to your high calcium. Follow up with the [employer] within 1 week in regards to resuming med Do not take any calcium supplements. You were prescribed Vitamin D supplements Purchase a pair of compression stockings to help with your lower extremity swelling and venous flow Diet Continue normal diet: Yes Activity Full Activity/No Limits: Yes Acute Coronary Syndrome Inclusion Criteria At DC or during hospital stay patient has or had the following: ACS DIAGNOSIS No Discharge Core Measures Meds if any: Prescribed or Continued at Discharge Meds if any: NOT Prescribed or Continued at Discharge Congestive Heart Failure Inclusion Criteria At DC or during hospital stay patient has or had the following: CHF DIAGNOSIS No Discharge Core Measures Meds if any: Prescribed or Continued at Discharge Meds if any: NOT Prescribed or Continued at Discharge Cerebrovascular accident Inclusion Criteria At DC or during hospital stay patient has or had the following: CVA/TIA Diagnosis No Discharge Core Measures Meds if any: Prescribed or Continued at Discharge Meds if any: NOT Prescribed or Continued at Discharge Venous thromboembolism Inclusion Criteria VTE Diagnosis No VTE Type NONE VTE Confirmed by (Test) NONE Discharge Core Measures - Per Current guidelines, there needs to be overlap - treatment for the first 5 days of Warfarin therapy. - If discharged on Warfarin prior to 5 days of - overlap therapy, the patient will need to be - assessed for post discharge needs including - *Post discharge parental anticoagulation - *Warfarin and/or parental anticoagulation education - *Follow up date to check INR post discharge At least 5 days overlap therapy as Inpatient No Meds if any: Prescribed or Continued at Discharge Note: Overlap Therapy is Warfarin and Anticoagulant Meds if any: NOT Prescribed or Continued at Discharge
--- NOTE | 2017-10-08 12:16 | Discharge Summary ---
Hospital Course Allergies: Coded Allergies: codeine (Intermediate, GI UPSET 09/08/17) Discharge Instructions Medications at Discharge Discharge Medications: Stop taking the following medications: Amoxicillin/Potassium Clav (Augmentin 875-125 Tablet) 875 MG-125 MG TABLET ORAL TWICE DAILY Qty = 8 Sulfamethoxazole/Trimethoprim (Bactrim Ds Tablet) 800 MG-160 MG TABLET ORAL TWICE DAILY Qty = 20 Continue taking these medications: Meclizine HCl (Meclizine HCl) 25 MG TABLET 1 Tablet ORAL THREE TIMES A DAY NEEDED Qty = 30 Comments: NOT GIVEN IN THE HOSPITAL. Hydrochlorothiazide (Hydrochlorothiazide) 25 MG TABLET 1 Tablet ORAL DAILY Qty = 90 Comments: NOT GIVEN IN HOSPITAL. Olmesartan Medoxomil (Benicar) 20 MG TABLET 1 Tablet ORAL DAILY Qty = 90 Comments: NOT GIVEN IN THE HOSPITAL Aspirin (Aspirin*) 81 MG TAB.CHEW 1 Tablet ORAL DAILY
--- NOTE | 2017-10-08 13:51 | Cons- Infect Disease ---
General Information and HPI Consulting Request Date of Consult: 10/08/17 Requested By: Halley Eppreson MD Reason for Consult: Rule out cellulitis of the right leg Source of Information: patient, old records History of Present Illness: This is a 77-year-old woman with a history of hypertension and hyperlipidemia, maintained on aspirin, seen in the emergency room 1 month prior to admission, approximately 1 week after a fall, with no break in the skin, with a burning pain, erythema and edema over the anterior aspect of her right ankle, found to be afebrile with a normal white blood cell count, negative x-ray and negative Doppler, given IV Cefazolin and discharged on a 10 day course of Bactrim and Keflex, admitted 10 days later after returning to the emergency room with the complaint of fever to 101 and persistent inflammation of the right leg, found to have a temperature of 100.5 with a normal white blood cell count and a negative Doppler, treated with Unasyn and discharged after 3 days on Augmentin for 5 days , begun on Doxycycline 4 days prior to admission because of a persistent burning pain of the right leg, admitted on October 07 after returning to the emergency room with persistent complaints of occasional burning/tingling pain in the right leg, with no fevers or chills. On admission she was afebrile. Laboratory data revealed a white blood cell count of 5000, BUN/creatinine 24 and 0.8, with normal liver enzymes. Ultrasound of the right leg revealed edema in the subcutaneous soft tissues with no evidence for any mass or fluid collection. She was given 1 dose of Unasyn and then followed off antibiotics. She has remained afebrile since admission. At present she notes an occasional burning pain in the right leg but offers no other complaints. Allergies/Medications Allergies: Coded Allergies: codeine (Intermediate, GI UPSET 09/08/17) Home Med List: Aspirin (Aspirin*) 81 MG TAB.CHEW 1 TAB PO DAILY Heart (Reported) Hydrochlorothiazide 25 MG TABLET 1 TAB PO DAILY HTN (Reported) Meclizine HCl 25 MG TABLET 1 TAB PO TIDPRN DIZZY (Reported) Olmesartan Medoxomil (Benicar) 20 MG TABLET 1 TAB PO DAILY HEART HEALTH ( Reported) Past History Travel History Traveled to [place] past 21 day No Medical History Blood Transfusion Hx: No Neurological: vertigo EENT: cataracts Cardiovascular: hypertension, hyperlipidemia Respiratory: NONE Gastrointestinal: constipation Hepatic: NONE Renal: NONE Musculoskeletal: NONE Psychiatric: NONE Endocrine: NONE Blood Disorders: NONE Cancer(s): NONE BUSINESS SERVICES 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 Home Services at Home: Nursing, Physical Therapy Smoking Status: Never Smoked ETOH Use: occasional use Illicit Drug Use: denies illicit drug use Functional Ability ADLs Independent: dressing, eating, toileting, bathing. Ambulation: independent IADLs Independent: shopping, housework, finances, food prep, telephone, transportation , medication admin. Review of Systems Review of Systems All Other Systems: Reviewed and Negative Exam & Diagnostic Data Last 24 Hrs of Vital Signs/I&O Vital Signs Date Time Temp Pulse Resp B/P B/P Pulse O2 O2 Flow FiO2 Mean Ox Delivery Rate 10/08 0831 128/62 10/08 0623 97.6 75 18 128/70 99 Room Air 10/08 0025 68 120/70 10/07 2210 98.0 83 18 142/72 98 Room Air 10/07 2051 98.2 91 18 149/75 99 Room Air 10/07 2042 Room Air 10/07 1518 98.4 96 18 167/89 98 Room Air Intake & Output 10/08 1600 10/08 0800 10/08 0000 Intake Total 120 0 Output Total 500 300 Balance -500 -180 0 Intake, Oral 120 0 Output, Urine 500 300 Patient 201 lb 204 lb Weight Weight Bed scale Measurement Method Physical Exam Other Physical Findings: She is awake and alert in no acute distress. She is afebrile. Skin reveals no rash. HEENT exam is negative. Neck is supple with no adenopathy. Lungs are clear. Heart regular rhythm with no murmur. Abdomen is soft, nontender with positive bowel sounds. Back no CVA tenderness. Extremities chronic venous stasis changes both lower extremities; right leg with mild erythema, improved with elevation, slightly warm to touch, with mild edema and minimal tenderness to palpation; 1+ pulses both feet. Neuro is without focality. Last 24 Hours of Lab Results: Laboratory Tests 10/08 10/07 0655 1832 Chemistry Sodium (137 - 145 mmol/L) 141 Potassium (3.5 - 5.1 mmol/L) 4.2 Chloride (98 - 107 mmol/L) 105 Carbon Dioxide (22 - 30 mmol/L) 28 Anion Gap (5 - 16) 8 BUN (7 - 17 mg/dL) 25 H Creatinine (0.5 - 1.0 mg/dL) 0.8 Estimated GFR (>60 ml/min) > 60 BUN/Creatinine Ratio (7 - 25 %) 31.3 H Lactic Acid Cancelled Calcium (8.4 - 10.2 mg/dL) 9.8 PTH Intact (18.4 - 80.1 pg/ML) 101.0 H Hematology CBC w Diff NO MAN DIFF REQ WBC (4.8 - 10.8 /CUMM) 3.5 L RBC (4.20 - 5.40 /CUMM) 3.95 L Hgb (12.0 - 16.0 G/DL) 11.3 L Hct (37 - 47 %) 34.1 L MCV (81.0 - 99.0 FL) 86.4 MCH (27.0 - 31.0 PG) 28.5 MCHC (33.0 - 37.0 G/DL) 33.0 RDW (11.5 - 14.5 %) 15.1 H Plt Count (130 - 400 /CUMM) 216 MPV (7.4 - 10.4 FL) 8.9 Gran % (42.2 - 75.2 %) 57.4 Lymphocytes % (20.5 - 51.1 %) 26.4 Monocytes % (1.7 - 9.3 %) 11.9 H Eosinophils % (0 - 5 %) 3.8 Basophils % (0.0 - 2.0 %) 0.5 Absolute Granulocytes (1.4 - 6.5 /CUMM) 2.0 Absolute Lymphocytes (1.2 - 3.4 /CUMM) 0.9 L Absolute Monocytes (0.10 - 0.60 /CUMM) 0.4 Absolute Eosinophils (0.0 - 0.7 /CUMM) 0.1 Absolute Basophils (0.0 - 0.2 /CUMM) 0 10/07 1714 Chemistry Sodium (137 - 145 mmol/L) 144 Potassium (3.5 - 5.1 mmol/L) 4.1 Chloride (98 - 107 mmol/L) 104 Carbon Dioxide (22 - 30 mmol/L) 27 Anion Gap (5 - 16) 13 BUN (7 - 17 mg/dL) 24 H Creatinine (0.5 - 1.0 mg/dL) 0.8 Estimated GFR (>60 ml/min) > 60 BUN/Creatinine Ratio (7 - 25 %) 30.0 H Glucose (65 - 99 mg/dL) 99 Lactic Acid (0.7 - 2.1 mmol/L) 0.7 Calcium (8.4 - 10.2 mg/dL) 10.8 H Total Bilirubin (0.2 - 1.3 mg/dL) 0.5 AST (14 - 36 U/L) 20 ALT (9 - 52 U/L) 17 Alkaline Phosphatase (<127 U/L) 121 Total Protein (6.3 - 8.2 g/dL) 8.1 Albumin (3.5 - 5.0 g/dL) 4.5 Globulin (1.9 - 4.2 gm/dL) 3.6 Albumin/Globulin Ratio (1.1 - 2.2 %) 1.3 Vitamin B12 (239 - 931 pg/mL) 558 25-OH Vitamin D Total (30 - 100 ng/ml) 26.2 L Hematology CBC w Diff NO MAN DIFF REQ WBC (4.8 - 10.8 /CUMM) 5.0 RBC (4.20 - 5.40 /CUMM) 4.50 Hgb (12.0 - 16.0 G/DL) 12.6 Hct (37 - 47 %) 38.7 MCV (81.0 - 99.0 FL) 85.9 MCH (27.0 - 31.0 PG) 27.9 MCHC (33.0 - 37.0 G/DL) 32.5 L RDW (11.5 - 14.5 %) 14.7 H Plt Count (130 - 400 /CUMM) 273 MPV (7.4 - 10.4 FL) 8.6 Gran % (42.2 - 75.2 %) 63.4 Lymphocytes % (20.5 - 51.1 %) 24.0 Monocytes % (1.7 - 9.3 %) 9.7 H Eosinophils % (0 - 5 %) 1.7 Basophils % (0.0 - 2.0 %) 1.2 Absolute Granulocytes (1.4 - 6.5 /CUMM) 3.1 Absolute Lymphocytes (1.2 - 3.4 /CUMM) 1.2 Absolute Monocytes (0.10 - 0.60 /CUMM) 0.5 Absolute Eosinophils (0.0 - 0.7 /CUMM) 0.1 Absolute Basophils (0.0 - 0.2 /CUMM) 0.1 Last 24 Hours of Te Results: Blood cultures 2 October 07 negative Diagnostic Data Recent Imaging Findings: Ultrasound of the right leg reveals edema in the subcutaneous soft tissues with no evidence for any mass or fluid collection. Assessment/Plan Assessment/Plan Impression: This is a 77-year-old woman treated with 3 courses of antibiotics over the past month for a right leg cellulitis after trauma to the right leg, with no break in the skin reported, admitted on October 07 with occasional burning/tingling pain in the right leg and persistent erythema, found to be afebrile with a normal white blood cell count. I am not convinced that she has a cellulitis at this point. She does have residual erythema but, given her venous stasis changes, suspect this may be secondary to venous insufficiency and, in the absence of any fever or leukocytosis and, given the fact that she has received 3 courses of antibiotics over the past month, feel that she can be followed off antibiotics. She may benefit from compression stockings and she has been evaluated by Vascular surgery. It is not clear if she has any arterial insufficiency, but an arterial Doppler has apparently just been done. Suggestion: 1. Follow-up arterial Dopplers 2. Compression stockings to both lower extremities 3. Elevation of the right leg when she is off of it 4. Vascular surgery follow-up as an outpatient 5. Continue to follow off antibiotics Consult Acknowledgment - Thank you for your consult request.
[2017-10-08 14:03] VITALS: BP 133/100
--- NOTE | 2017-10-08 14:23 | ULTRASOUND REPORT ---
EXAMINATION: US NONINVASIVE ASSESSMENT OF THE ARTERIES OF BOTH LOWER EXTREMITIES INTERPRETING VASCULAR \T\ INTERVENTIONAL RADIOLOGIST: Ray Canchola MD CLINICAL INFORMATION: Bilateral leg pain TECHNIQUE: Bilateral lower extremity duplex ultrasound was performed with velocity measurements and waveform analysis in the common femoral arteries, profunda femoris arteries, proximal mid and distal superficial femoral arteries, popliteal arteries and tibial vessels. This study was performed only at rest. COMPARISON: None FINDINGS: Velocities in cm/sec and phasicity as well as the presence of plaque are reported below. RIGHT LEG: Multiphasic flow is seen down to the level of the popliteal artery but monophasic flow below this. Some plaque is noted. Common Femoral: 100/5 Profunda Femoris: 53/10 Proximal SFA: 86/9 Mid SFA: 90/11 Distal SFA: 157/19 Popliteal: 135/20 Anterior tibial: 89/18 Posterior tibial 49/17 Dorsalis pedis 42/9 LEFT LEG: Multiphasic flow is noted throughout. Some mild plaquing is noted. Common Femoral: 77/2 Profunda Femoris: 44/7 Proximal SFA: 80/9 Mid SFA: 105/10 Distal SFA: 63/2 Popliteal: 79/8 Anterior tibial: 92/10 Posterior tibial: Not seen Dorsalis pedis: 59/1 IMPRESSION: Right: There is an area of velocity acceleration in the distal SFA on the right indicative of disease with monophasic flow seen below this level. Left: No convincing evidence of significant peripheral vascular disease on the left. CT angiography may be helpful for further evaluation.
[2017-10-08] MEDS ORDERED: VITAMIN D1000 UNI1 PO (14:36)
[2017-10-08] MEDS ORDERED: TYLENOL325 M1 PO ×2 (14:38→15:27)
[2017-10-08 15:00] VITALS: BP 132/63
--- NOTE | 2017-10-08 16:23 | Cons- Endocrinology ---
General Information and HPI Consulting Request Date of Consult: 10/08/17 Requested By: medical team Reason for Consult: Hypercalcemia Source of Information: patient, family, old records Exam Limitations: no limitations History of Present Illness: This 77-year-old woman has a known history of hypertension and hyperlipidemia and was admitted with redness and swelling of the right lower leg. She had been treated in the ER about a month ago and then also was admitted to the hospital in the month of August because of symptoms of cellulitis involving the right lower leg. In the [facility] lab work has shown evidence of hypercalcemia. Her calcium level on September 08, 2017 was 10.5, on September 18 it was 10.1, and at the beginning of this admission it was 10.8. The patient's was on hydrochlorothiazide which was stopped and her calcium today is 9.8. The patient has normal renal function. A PTH was done and has returned as elevated at 101.0. The patient's vitamin D level was 26.2. The patient was on some vitamin D at home. In speaking with the patient she did have kidney stones a few years ago. Apparently she has not had any recurrent stones. She also had a bone density but this was several years ago. She denies any bone pain. Allergies/Medications Allergies: Coded Allergies: codeine (Intermediate, GI UPSET 09/08/17) Home Med List: Acetaminophen (Tylenol) 325 MG TABLET 325 MG PO Q6P PRN LEG PAIN . Aspirin (Aspirin*) 81 MG TAB.CHEW 1 TAB PO DAILY Heart (Reported) Cholecalciferol (Vitamin D3) (Vitamin D) 1,000 UNIT CAPSULE 1,000 UNIT PO DAILY vitamin supplement Meclizine HCl 25 MG TABLET 1 TAB PO TIDPRN DIZZY (Reported) Olmesartan Medoxomil (Benicar) 20 MG TABLET 1 TAB PO DAILY HEART HEALTH ( Reported) Past History Travel History Traveled to [place] past 21 day No Medical History Blood Transfusion Hx: No Neurological: vertigo EENT: cataracts Cardiovascular: hypertension, hyperlipidemia Respiratory: NONE Gastrointestinal: constipation Hepatic: NONE Renal: NONE Musculoskeletal: NONE Psychiatric: NONE Endocrine: NONE Blood Disorders: NONE Cancer(s): NONE ANGLE BENDER/Reproductive: NONE Surgical History Surgical History: non-contributory Psychosocial History Where Do You Live? Home Services at Home: Nursing, Physical Therapy Smoking Status: Never Smoked ETOH Use: occasional use Illicit Drug Use: denies illicit drug use Functional Ability ADLs Independent: dressing, eating, toileting, bathing. Ambulation: independent IADLs Independent: shopping, housework, finances, food prep, telephone, transportation , medication admin. Exam & Diagnostic Data Last 24 Hrs of Vital Signs/I&O Vital Signs Date Time Temp Pulse Resp B/P B/P Pulse O2 O2 Flow FiO2 Mean Ox Delivery Rate 10/08 1500 132/63 10/08 1403 97.7 95 18 133/100 100 Room Air 10/08 0831 128/62 10/08 0623 97.6 75 18 128/70 99 Room Air 10/08 0025 68 120/70 10/07 2210 98.0 83 18 142/72 98 Room Air 10/07 2050 98.2 91 18 149/75 99 Room Air 10/07 2041 Room Air Intake & Output 10/08 1600 10/08 0800 10/08 0000 Intake Total 960 120 0 Output Total 1300 300 Balance -340 -180 0 Intake, Oral 960 120 0 Output, Urine 1300 300 Patient 201 lb 204 lb Weight Weight Bed scale Measurement Method Vital Signs Date Time Temp Pulse Resp B/P B/P Pulse O2 O2 Flow FiO2 Mean Ox Delivery Rate 10/08 1500 132/63 10/08 1403 97.7 95 18 133/100 100 Room Air 10/08 0831 128/62 10/08 0623 97.6 75 18 128/70 99 Room Air 10/08 0025 68 120/70 10/07 2210 98.0 83 18 142/72 98 Room Air 10/07 2050 98.2 91 18 149/75 99 Room Air 10/07 2041 Room Air Intake & Output 10/08 1600 10/08 0800 10/08 0000 Intake Total 960 120 0 Output Total 1300 300 Balance -340 -180 0 Intake, Oral 960 120 0 Output, Urine 1300 300 Patient 201 lb 204 lb Weight Weight Bed scale Measurement Method Physical Exam General Appearance: well developed/nourished, no apparent distress, alert, awake , comfortable Labs/Te Results: Laboratory Tests 10/08 10/07 0655 1832 Chemistry Sodium (137 - 145 mmol/L) 141 Potassium (3.5 - 5.1 mmol/L) 4.2 Chloride (98 - 107 mmol/L) 105 Carbon Dioxide (22 - 30 mmol/L) 28 Anion Gap (5 - 16) 8 BUN (7 - 17 mg/dL) 25 H Creatinine (0.5 - 1.0 mg/dL) 0.8 Estimated GFR (>60 ml/min) > 60 BUN/Creatinine Ratio (7 - 25 %) 31.3 H Lactic Acid Cancelled Calcium (8.4 - 10.2 mg/dL) 9.8 PTH Intact (18.4 - 80.1 pg/ML) 101.0 H Hematology CBC w Diff NO MAN DIFF REQ WBC (4.8 - 10.8 /CUMM) 3.5 L RBC (4.20 - 5.40 /CUMM) 3.95 L Hgb (12.0 - 16.0 G/DL) 11.3 L Hct (37 - 47 %) 34.1 L MCV (81.0 - 99.0 FL) 86.4 MCH (27.0 - 31.0 PG) 28.5 MCHC (33.0 - 37.0 G/DL) 33.0 RDW (11.5 - 14.5 %) 15.1 H Plt Count (130 - 400 /CUMM) 216 MPV (7.4 - 10.4 FL) 8.9 Gran % (42.2 - 75.2 %) 57.4 Lymphocytes % (20.5 - 51.1 %) 26.4 Monocytes % (1.7 - 9.3 %) 11.9 H Eosinophils % (0 - 5 %) 3.8 Basophils % (0.0 - 2.0 %) 0.5 Absolute Granulocytes (1.4 - 6.5 /CUMM) 2.0 Absolute Lymphocytes (1.2 - 3.4 /CUMM) 0.9 L Absolute Monocytes (0.10 - 0.60 /CUMM) 0.4 Absolute Eosinophils (0.0 - 0.7 /CUMM) 0.1 Absolute Basophils (0.0 - 0.2 /CUMM) 0 10/07 1714 Chemistry Sodium (137 - 145 mmol/L) 144 Potassium (3.5 - 5.1 mmol/L) 4.1 Chloride (98 - 107 mmol/L) 104 Carbon Dioxide (22 - 30 mmol/L) 27 Anion Gap (5 - 16) 13 BUN (7 - 17 mg/dL) 24 H Creatinine (0.5 - 1.0 mg/dL) 0.8 Estimated GFR (>60 ml/min) > 60 BUN/Creatinine Ratio (7 - 25 %) 30.0 H Glucose (65 - 99 mg/dL) 99 Lactic Acid (0.7 - 2.1 mmol/L) 0.7 Calcium (8.4 - 10.2 mg/dL) 10.8 H Total Bilirubin (0.2 - 1.3 mg/dL) 0.5 AST (14 - 36 U/L) 20 ALT (9 - 52 U/L) 17 Alkaline Phosphatase (<127 U/L) 121 Total Protein (6.3 - 8.2 g/dL) 8.1 Albumin (3.5 - 5.0 g/dL) 4.5 Globulin (1.9 - 4.2 gm/dL) 3.6 Albumin/Globulin Ratio (1.1 - 2.2 %) 1.3 Vitamin B12 (239 - 931 pg/mL) 558 25-OH Vitamin D Total (30 - 100 ng/ml) 26.2 L Hematology CBC w Diff NO MAN DIFF REQ WBC (4.8 - 10.8 /CUMM) 5.0 RBC (4.20 - 5.40 /CUMM) 4.50 Hgb (12.0 - 16.0 G/DL) 12.6 Hct (37 - 47 %) 38.7 MCV (81.0 - 99.0 FL) 85.9 MCH (27.0 - 31.0 PG) 27.9 MCHC (33.0 - 37.0 G/DL) 32.5 L RDW (11.5 - 14.5 %) 14.7 H Plt Count (130 - 400 /CUMM) 273 MPV (7.4 - 10.4 FL) 8.6 Gran % (42.2 - 75.2 %) 63.4 Lymphocytes % (20.5 - 51.1 %) 24.0 Monocytes % (1.7 - 9.3 %) 9.7 H Eosinophils % (0 - 5 %) 1.7 Basophils % (0.0 - 2.0 %) 1.2 Absolute Granulocytes (1.4 - 6.5 /CUMM) 3.1 Absolute Lymphocytes (1.2 - 3.4 /CUMM) 1.2 Absolute Monocytes (0.10 - 0.60 /CUMM) 0.5 Absolute Eosinophils (0.0 - 0.7 /CUMM) 0.1 Absolute Basophils (0.0 - 0.2 /CUMM) 0.1 Assessment/Plan Assessment/Plan This 77-year-old woman has found to have mild hypercalcemia. She was on hydrochlorothiazide. The elevated calciums have been present for at least 1 month. She states she was not told of elevated calciums in the past. The patient has an elevated parathyroid hormone and the findings are most likely consistent with primary hyperparathyroidism. The patient will need further evaluation as an outpatient with a ultrasound of her kidneys to look for kidney stones and will need a repeat bone density done. She can continue to have normal amounts of calcium in her diet but should not take any calcium supplementation. She can stay on vitamin D 1000 units daily which she was on at home. We will need to repeat the patient's blood work as an outpatient and evaluate her further for primary hyperparathyroidism. If the diagnosis is confirmed, there is no good medical treatment for primary hyperparathyroidism. If we find evidence of kidney stones are osteoporosis than the patient could become a candidate to consider parathyroid surgery if her general medical condition allows. In the meantime, the patient should stay well hydrated. I agree with stopping the hydrochlorothiazide at this time. If she can get along with her angiotensin receptor nicky alone for her hypertension this would be preferable. Consult Acknowledgment - Thank you for your consult request.
== END 2017-10-08 16:48 | DRG 301 ==
LOC: ERH 13:35 → ERHI 20:25 → 2NB 20:25 → ENRESERV 21:07 → ENTRNSPT 21:46 → 2NB 22:00 → CMPTRNSPT 22:08 → 2NB 10-08 07:20 → ENTRNSPT 10-08 16:38 → EDTRNSPTSTS 10-08 16:46 → EDTRNSPT 10-08 16:46 → 2NB 10-08 16:48 → CMPTRNSPT 10-08 16:50
PROVIDERS: Physician Assistant; Student in an Organized Health Care Education/Training Program
DX: I73.9 Peripheral vascular disease, unspecified (principal); E83.52 Hypercalcemia; E86.0 Dehydration; I10 Essential (primary) hypertension; L54 Erythema in diseases classified elsewhere; E78.5 Hyperlipidemia, unspecified; R42 Dizziness and giddiness; H26.9 Unspecified cataract; Z88.5 Allergy status to narcotic agent; K59.00 Constipation, unspecified
CPT/HCPCS: 2NBSP; 36592; 76881; 82436; 87040; 93925; 96374; J1650; J3490